=== PATIENT | male | born 1935 | race Caucasian/White ===

== ENCOUNTER 2016-09-05 11:25 | Inpatient (IN) ==
[2016-09-05] MEDS ORDERED: NITROSTAT SL PRN (11:43)
[2016-09-05] MEDS ORDERED: MORPHINE 4 MG/ML SYRINGE IVP PRN (11:43)
[2016-09-05] MEDS ORDERED: ATROPINE SULFATE PFS IVP PRN (11:43)
[2016-09-05] MEDS ORDERED: TYLENOL PO PRN (11:43)
[2016-09-05] MEDS ORDERED: VISTARIL INJ IM PRN (11:43)
[2016-09-05] MEDS ORDERED: LANOXIN IVP STA (11:46)
[2016-09-05] MEDS ORDERED: LASIX IVP STA (11:48)
[2016-09-05 12:00] VITALS: BMI 27.5
[2016-09-05 12:08] LABS: ABG BASE EXCESS -3 (-2.0-2.0); ABG HCO3 21.9 (22.0-26.0); ABG PCO2 33.4 mmHg (35-45); ABG PH 7.424 (7.35-7.45); ABG TCO2 23 (22.0-28.0)
[2016-09-05 12:12] LABS: BASOPHILS % (AUTO) 0.3 % (0.0-3.0); EOSINOPHILS # (AUTO) 0.1 K/ul (0.0-0.7); EOSINOPHILS % (AUTO) 2.1 % (0.0-7.0); HEMOGLOBIN 14.9 g/dl (14.0-18.0); IMMATURE GRANULOCYTE % (AUTO) 1.1 % (0.0-5.0); LYMPHOCYTES # (AUTO) 1.4 K/uL (0.60-3.4); LYMPHOCYTES % (AUTO) 23.1 (10.0-50.0); MEAN CORPUSCULAR HGB CONC 34.7 (31.8-35.4); MEAN CORPUSCULAR VOLUME 92.3 fl (80.0-94.0); MONOCYTES % (AUTO) 15.3 (0-10); NEUTROPHILS # (AUTO) 3.6 K/ul (2.0-6.9); NEUTROPHILS % (AUTO) 58.1; PLATELET COUNT 245 10^3/uL (140-440); RED BLOOD COUNT 4.66 10^6/ul (4.70-6.10); WHITE BLOOD COUNT 6.19 K/ul (4.2-10.2)
[2016-09-05] MEDS: ELIQUIS PO SCH ×2 (12:32→20:03)
[2016-09-05 12:48] LABS: ALBUMIN 4.1 g/dL (3.4-5.0); ALBUMIN/GLOBULIN RATIO 1.64; ANION GAP 14.3; BILIRUBIN,TOTAL 1.34 mg/dL (0.00-1.20); BUN/CREATININE RATIO 13.44; CALCIUM 9.3 mg/dL (8.2-10.2); CREATININE 1.19 mg/dL (0.60-1.10); POTASSIUM 3.3 mmol/L (3.5-5.1); TOTAL PROTEIN 6.6 g/dL (5.8-8.1); TROPONIN I 0.027 ng/ml (0.0000-0.4000)
--- NOTE | 2016-09-05 14:08 | DI ---
EXAM: Chest one view. CLINICAL INDICATION: Leg edema. COMPARISON: 01/06/2015. FINDINGS: A single AP radiograph of the thorax is provided. There are chronic underlying pulmonary parenchymal changes. The remainder of the pulmonary parenchy ma is clear and there is no pleural abnormality. The cardiomediastinal silhouette and visualized [place] structures are unchanged. IMPRESSION: No interval change, with no acute pulmonary abnormality.
[2016-09-05] MEDS ORDERED: LANOXIN IVP ONE (14:46)
[2016-09-05 15:11] LABS: BILIRUBIN,URINE Negative (NEGATIVE); KETONES,URINE Negative (NEGATIVE); LEUKOCYTE ESTERASE ,URINE Negative (NEGATIVE); NITRITE,URINE Negative (NEGATIVE); PROTEIN,URINE Negative (NEGATIVE); URINE, BLOOD Negative (NEGATIVE)
[2016-09-05 15:16] LABS: ADD URINE MICROSCOPIC NO
[2016-09-05] MEDS: FERROUS SULFATE PO SCH (20:03)
[2016-09-05 20:53] LABS: TROPONIN I 0.031 ng/ml (0.0000-0.4000)
[2016-09-05] MEDS ORDERED: [UNRECOGNIZED DRUG - MIXTURE] PO SCH (21:00)
[2016-09-06] MEDS: PROTONIX PO SCH (05:32)
[2016-09-06 06:22] LABS: BASOPHILS % (AUTO) 0.4 % (0.0-3.0); EOSINOPHILS # (AUTO) 0.1 K/ul (0.0-0.7); EOSINOPHILS % (AUTO) 1.9 % (0.0-7.0); HEMATOCRIT 43.7 % (42.0-52.0); HEMOGLOBIN 14.8 g/dl (14.0-18.0); IMMATURE GRANULOCYTE % (AUTO) 0.5 % (0.0-5.0); LYMPHOCYTES # (AUTO) 1.6 K/uL (0.60-3.4); LYMPHOCYTES % (AUTO) 21.4 (10.0-50.0); MEAN CORPUSCULAR HEMOGLOBIN 31.2 pg (27.0-31.0); MEAN CORPUSCULAR HGB CONC 33.9 (31.8-35.4); MONOCYTES # (AUTO) 1.7 K/uL (0.4-2.0); MONOCYTES % (AUTO) 23.6 (0-10); NEUTROPHILS # (AUTO) 3.8 K/ul (2.0-6.9); NEUTROPHILS % (AUTO) 52.2; PLATELET COUNT 234 10^3/uL (140-440); RED BLOOD COUNT 4.75 10^6/ul (4.70-6.10)
[2016-09-06] MEDS ORDERED: PRILOSEC PO SCH (06:30)
[2016-09-06] MEDS ORDERED: LASIX IVP SCH (06:30)
[2016-09-06 06:59] LABS: ALBUMIN 3.8 g/dL (3.4-5.0); ALBUMIN/GLOBULIN RATIO 1.52; ANION GAP 12.3; BILIRUBIN,TOTAL 1.43 mg/dL (0.00-1.20); BUN/CREATININE RATIO 11.2; CALCIUM 9.4 mg/dL (8.2-10.2); CREATININE 1.16 mg/dL (0.60-1.10); POTASSIUM 3.3 mmol/L (3.5-5.1); TOTAL PROTEIN 6.3 g/dL (5.8-8.1)
[2016-09-06] MEDS ORDERED: ASPIRIN EC PO SCH (08:00)
[2016-09-06] MEDS: ASPIRIN EC PO SCH (08:50)
[2016-09-06] MEDS ORDERED: LANOXIN IVP STA ×2 (08:56→21:14)
[2016-09-06] MEDS ORDERED: NON-FORMULARY MEDICATION (Ferrous Sulfate [Iron] 325 MG) PO SCH ×22 (09:00)
[2016-09-06] MEDS: ELIQUIS PO SCH ×2 (09:36→21:25)
[2016-09-06] MEDS: K-DUR PO SCH (09:36)
[2016-09-06] MEDS: COZAAR PO SCH (09:37)
[2016-09-06] MEDS: BETAPACE PO SCH ×4 (09:37→21:24)
[2016-09-06] MEDS: FERROUS SULFATE PO SCH ×2 (09:37→21:26)
--- NOTE | 2016-09-06 12:57 | PCM.PROG ---
Attending Provider: ATTENDING PROVIDER: Dr. JENNIFER ADORNO DATE OF SERVICE: 09/06/16 SUBJECTIVE: This 81 year old WHITE/ M was hospitalized 09/05/16. The patient is hospitalized with leg edema and atrial fibrillation with rapid ventricular response. The patient's edema is much less. Breathing is better. Echo today showed normal LV contractility. LA size 4.1 cm. Mitral valve prolapse noted with moderate mitral regurgitation. Heart rate is still 120 times per minute, average. No symptoms of CHF or CAD. REVIEW OF SYSTEMS: CONSTITUTIONAL: No night sweats. No fatigue, malaise, lethargy. No fever or chills. HEENT: Eyes: No visual changes. No eye pain. No eye discharge. ENT: No runny nose. No epistaxis. No sinus pain. No odynophagia. No congestion. RESPIRATORY: No cough, no congestion. No hemoptysis. CARDIOVASCULAR: No angina symptoms. No CHF symptoms. No atypical chest pain for CAD. No palpitations. No shortness of breath. GASTROINTESTINAL: No abdominal pain. No nausea or vomiting. No diarrhea or constipation. No hematemesis. No hematochezia. GENITOURINARY: No urgency. No frequency. No dysuria. No hematuria. No obstructive symptoms. No discharge. No pain. No significant abnormal bleeding. MUSCULOSKELETAL: Generalized osteoarthritic pain. NEUROLOGICAL: Awake, alert, oriented to time, place and person. No headache. No neck pain. No syncope. No seizures. No dizziness. PSYCHIATRIC: Not anxious. No depression. No suicidal thoughts. No homicidal thoughts. SKIN: No rash. No lesions. No wounds. ENDOCRINE: No unexplained weight loss. No weight gain. HEMATOLOGIC/LYMPHATIC: No anemia. No purpura. No petechiae. No prolonged or excessive bleeding. No palpable lymph nodes. PHYSICAL EXAMINATION: GENERAL: The patient is awake, alert and oriented, sitting in bed in no distress. VITAL SIGNS: Temperature 97.5 F, Pulse 121, Respiratory Rate 16, BP 125/84, Pulse Ox 92% HEENT: Head normocephalic, atraumatic. Eyes: Extraocular muscles are intact. Pupils are equal, round and reactive to light and accommodation. Ears: No lesions. Nose appeared normal. Throat: No exudate or erythema. NECK: Supple. No JVD, no carotid bruit. No lymphadenopathy or thyromegaly. LUNGS: Decreased breath sounds. Clear to auscultation. Percussion note normal. Chest symmetrical. HEART: S1, S2. no S3. Irregularly irregular rate. No cyanosis or clubbing. No ascites. Pulses: Dorsalis pedis and posterior tibial pulses +1 to +2 both sides. ABDOMEN: Soft. Non-tender. Bowel sounds active. No CVA tenderness. No mass felt. EXTREMITIES: +1 pitting edema. Full range of motion of all extremities, equal. NEUROLOGIC: No focal deficit. Cranial nerves II through XII are grossly intact. No headache, no double vision or headache. SKIN: Not dry. Intact. Turgor-normal. LYMPHATIC: No palpable lymph nodes/no lymphedema. MUSCULOSKELETAL: Normal joints with no swelling. Muscle tone is normal. LAB REVIEW: 09/06/16 05:30 09/06/16 05:30 09/06/16 05:30: WBC 7.30, RBC 4.75, Hgb 14.8, Hct 43.7, MCV 92.0, MCH 31.2 H, MCHC 33.9, RDW Coeff of Panfilo 14.6, Plt Count 234, Immature Gran % (Auto) 0.5, Neut % (Auto) 52.2, Lymph % (Auto) 21.4, [place] % (Auto) 23.6 H, Eos % (Auto) 1.9 , Baso % (Auto) 0.4, Immature Gran # (Auto) 0.0, Neut # 3.8, Lymph # 1.6, [place] # 1.7, Eos # 0.1, Baso # 0.0, Sodium 144, Potassium 3.3 L, Chloride 104, Carbon Dioxide 31, Anion Gap 12.3, BUN 13, Creatinine 1.16 H, Estimated GFR (MDRD) 60.00, BUN/Creatinine Ratio 11.20, Glucose 79 L, Calcium 9.4, Total Bilirubin 1.43 H, AST 51 H, ALT 77, Alkaline Phosphatase 84, Total Protein 6.3, Albumin 3.8, Globulin 2.5, Albumin/Globulin Ratio 1.52 09/05/16 20:15: Total Creatine Kinase 68, Myoglobin 94, Troponin I 0.0310 09/05/16 12:00: WBC 6.19, RBC 4.66 L, Hgb 14.9, Hct 43.0, MCV 92.3, MCH 32.0 H, MCHC 34.7, RDW Coeff of Panfilo 14.9 H, Plt Count 245, Immature Gran % (Auto) 1.1, Neut % (Auto) 58.1, Lymph % (Auto) 23.1, [place] % (Auto) 15.3 H, Eos % (Auto) 2.1 , Baso % (Auto) 0.3, Immature Gran # (Auto) 0.1, Neut # 3.6, Lymph # 1.4, [place] # 1.0, Eos # 0.1, Baso # 0.0, Sodium 143, Potassium 3.3 L, Chloride 106, Carbon Dioxide 26, Anion Gap 14.3, BUN 16, Creatinine 1.19 H, Estimated GFR (MDRD) 59.00, BUN/Creatinine Ratio 13.44, Glucose 119 H, Calcium 9.3, Total Bilirubin 1.34 H, AST 68 H, ALT 97 H, Alkaline Phosphatase 90, Total Creatine Kinase 66, Myoglobin 66, Troponin I 0.0270, B-Natriuretic Peptide 632 H, Total Protein 6.6 , Albumin 4.1, Globulin 2.5, Albumin/Globulin Ratio 1.64, TSH 2.267, Free T4 1.23 H 09/05/16 11:45: Puncture Site Rr, O2 Saturation 94.0 L, ABG pH 7.424, ABG pCO2 33.4 L, ABG pO2 70.0 L, ABG HCO3 21.9 L, ABG Total CO2 23, ABG Base Excess -3 L , Bertin Test +, FiO2 % 21.0 09/05/16 11:43: Urine Color Yellow, Urine Clarity Clear, Urine pH 5.0, Ur Specific [place] 1.015, Urine Protein Negative, Urine Glucose (UA) Negative, Urine Ketones Negative, Urine Blood Negative, Urine Nitrite Negative, Urine Bilirubin Negative, Urine Urobilinogen 0.2, Ur Leukocyte Esterase Negative ASSESSMENT: 1. Atrial fibrillation with rapid ventricular response, early CHF, mitral regurgitation moderate with mitral valve prolapse/leg edema. 2. History of hypertension. PLAN: 1. Lanoxin 0.25 IV now and Betapace 40 mg t.i.d. 2. Discontinue Hydrochlorothiazide. 3. Lasix 40 mg p.o. daily. 4. Discontinue IV Lasix. 5. Discontinue Zestril. 6. Cozaar 50 mg daily. 7. Lanoxin level in the a.m. 8. K-Tab 20 mEq 9. Regular diet. Plan and coordination of the patient's care discussed in the presence of Application Counselor and nurse. CONDITION: Stable EDUCATION CARRIED OUT ABOUT: Discussed diagnoses and plan of care with the and patient. SCRIBED BY: SAM MORA Bumper Machine Operator scribed while in presence of service performed by Dr. JENNIFER ADORNO on 09/06/16 ([id number])
--- NOTE | 2016-09-06 14:35 | HP ---
DATE OF SERVICE: 09/05/16 REASON FOR HOSPITALIZATION/HISTORY OF PRESENT ILLNESS: Feet and legs swelling. Shortness of breath with exertion times 4 weeks. Was refusing to come to [facility]. Some palpitations x4 weeks. No chest pain. No symptoms of coronary artery disease and no energy. REVIEW OF SYSTEMS: CONSTITUTIONAL: No fever, Fatigue. HEENT: No sinus drainage, no sore throat. RESPIRATORY: No cough, no congestion. CARDIOVASCULAR: No atypical chest pain for coronary artery disease. No angina , CHF symptoms. Palpitations and shortness of breath. GASTROINTESTINAL: No melena or abdominal pain. No GERD. GENITOURINARY: No hematuria, no prostatism, no polyuria. ASSEMBLER FAUCETS: No blackout, Dizziness, no headache, no double vision. MUSCULOSKELETAL: Osteoarthritis pain, no joint swelling. ENDOCRINE: No weight loss. Weight gain- 10 pounds in 3 months. SKIN: Not dry, no rash. PSYCHIATRIC: Anxious, no depression, no suicidal thoughts, no homicidal thoughts. SOCIAL HISTORY: Marital Status: with 7 children. Alcohol Usage: No. Tobacco Usage: Quit. Family history: Father , Mother -cancer. PAST MEDICAL AND SURGICAL HISTORY: Vasectomy 1970 Hernia 1966 Hypertension Heart burn MEDICATIONS: Aspirin 81mg Lisinopril 10-12.5mg PO Q 72 hours Ferrous Sulfate 325mg PO daily Protonix 40mg PO daily Cold and Flu fighter cap PO bedtime ALLERGIES: No known drug allergies PHYSICAL EXAMINATION: V/S: pulse 116, blood pressure 124/82 and pulse ox 99% GENERAL APPEARANCE: Oriented times three. HEENT: Normal. NECK: No JVP, no bruits. RESPIRATORY: Lungs are clear with few creps. CARDIOVASCULAR: S1, S2, no S3, irregular rate 130/min. No cyanosis, clubbing. No ascites. GI/ABDOMEN: No tenderness. Bowel sounds are active. EXTREMITIES: +2 pitting edema, pulses +1, equal. ASSEMBLER FAUCETS: Deep tendon reflexes, sensory, motor and gait all normal. RECTAL: Dr. Quintero 8-16/PROSTATE: 2-15(2.9). LABS: BNP 632, T4 TSH practically normal, hgb 14.9, hct 43, WBC 6,100 normal differential, potassium 3.3, creatinine 1.1, BUN 16, Bilirubin 1.3, AST and ALT elevated 68 and 97 normal being up to 37 and 78 respectively. ABG pO2 70, pCO2 33, pH 7.42 with 94% saturation. Chest x-ray normal. EGF atrial fibrillation with rapid ventricular response rate 130 per minute. ASSESSMENT: 1. Atrial fibrillation 2. Congestive heart failure 3. Leg edema 4. Hypertension 5. GERD 6. COPD 7. Large hiatal hernia 8. Insomnia 9. Right adrenal nodule. PLAN: 1. Admit 2. Routine telemetry orders 3. T4 and TSH 4. Daily CBC and CMP 5. BNP 6. Echo 2D M Mode 7. Lanoxin 0.25mg IV now and another dose 3 hours later 8. Elevate legs 9. Lasix 40mg IV Q AM and today 10. Daily weight 11. Educate about Atrial fibrillation 12. Eliquis 5mg PO twice a day daily 13. ABG 14. Continue all home medications. TIME SPENT: More than 70 minutes. MTDD
[2016-09-06] MEDS ORDERED: BETAPACE PO STA (21:19)
[2016-09-07] MEDS: LASIX TAB PO SCH (05:57)
[2016-09-07] MEDS: PROTONIX PO SCH (05:58)
[2016-09-07 07:30] LABS: BASOPHILS % (AUTO) 0.5 % (0.0-3.0); EOSINOPHILS # (AUTO) 0.2 K/ul (0.0-0.7); EOSINOPHILS % (AUTO) 2.8 % (0.0-7.0); HEMATOCRIT 44.4 % (42.0-52.0); HEMOGLOBIN 15.1 g/dl (14.0-18.0); IMMATURE GRANULOCYTE % (AUTO) 1.1 % (0.0-5.0); LYMPHOCYTES # (AUTO) 1.5 K/uL (0.60-3.4); LYMPHOCYTES % (AUTO) 22.7 (10.0-50.0); MEAN CORPUSCULAR HEMOGLOBIN 31.2 pg (27.0-31.0); MEAN CORPUSCULAR VOLUME 91.7 fl (80.0-94.0); MONOCYTES # (AUTO) 1.3 K/uL (0.4-2.0); NEUTROPHILS # (AUTO) 3.4 K/ul (2.0-6.9); NEUTROPHILS % (AUTO) 52.9; PLATELET COUNT 265 10^3/uL (140-440); RED BLOOD COUNT 4.84 10^6/ul (4.70-6.10); WHITE BLOOD COUNT 6.39 K/ul (4.2-10.2)
[2016-09-07 07:54] LABS: ALBUMIN 3.7 g/dL (3.4-5.0); ALBUMIN/GLOBULIN RATIO 1.54; ANION GAP 16.3; BILIRUBIN,TOTAL 1.47 mg/dL (0.00-1.20); BUN/CREATININE RATIO 16.66; CALCIUM 9.4 mg/dL (8.2-10.2); CREATININE 1.08 mg/dL (0.60-1.10); POTASSIUM 3.3 mmol/L (3.5-5.1); TOTAL PROTEIN 6.1 g/dL (5.8-8.1)
[2016-09-07] MEDS: COZAAR PO SCH (08:49)
[2016-09-07] MEDS: ELIQUIS PO SCH ×2 (08:49→20:20)
[2016-09-07] MEDS: BETAPACE PO SCH ×2 (08:49→20:18)
[2016-09-07] MEDS: K-DUR PO SCH (08:50)
[2016-09-07] MEDS: FERROUS SULFATE PO SCH ×2 (08:50→20:20)
[2016-09-07] MEDS: ASPIRIN EC PO SCH (08:50)
[2016-09-07] MEDS ORDERED: LANOXIN IVP STA (13:38)
[2016-09-07] MEDS ORDERED: BETAPACE PO STA (13:38)
[2016-09-07] MEDS ORDERED: LANOXIN ONE (14:10)
[2016-09-07 22:37] VITALS: TEMP 97.6
[2016-09-08 05:20] VITALS: BP 116/81
[2016-09-08] MEDS: LASIX TAB PO SCH (05:32)
[2016-09-08] MEDS: PROTONIX PO SCH (05:32)
[2016-09-08 05:37] LABS: BASOPHILS % (AUTO) 0.5 % (0.0-3.0); EOSINOPHILS # (AUTO) 0.2 K/ul (0.0-0.7); EOSINOPHILS % (AUTO) 2.3 % (0.0-7.0); HEMATOCRIT 43.7 % (42.0-52.0); HEMOGLOBIN 14.9 g/dl (14.0-18.0); IMMATURE GRANULOCYTE % (AUTO) 0.8 % (0.0-5.0); LYMPHOCYTES # (AUTO) 1.7 K/uL (0.60-3.4); LYMPHOCYTES % (AUTO) 26.3 (10.0-50.0); MEAN CORPUSCULAR HGB CONC 34.1 (31.8-35.4); MONOCYTES # (AUTO) 1.4 K/uL (0.4-2.0); MONOCYTES % (AUTO) 21.4 (0-10); NEUTROPHILS # (AUTO) 3.1 K/ul (2.0-6.9); NEUTROPHILS % (AUTO) 48.7; PLATELET COUNT 230 10^3/uL (140-440); WHITE BLOOD COUNT 6.39 K/ul (4.2-10.2)
[2016-09-08 06:05] LABS: ALBUMIN 3.5 g/dL (3.4-5.0); ALBUMIN/GLOBULIN RATIO 1.52; ANION GAP 14.9; BILIRUBIN,TOTAL 1.27 mg/dL (0.00-1.20); BUN/CREATININE RATIO 23.23; CALCIUM 9.2 mg/dL (8.2-10.2); CREATININE 0.99 mg/dL (0.60-1.10); POTASSIUM 3.9 mmol/L (3.5-5.1); TOTAL PROTEIN 5.8 g/dL (5.8-8.1)
[2016-09-08] MEDS: ASPIRIN EC PO SCH (08:10)
[2016-09-08] MEDS: COZAAR PO SCH (08:10)
[2016-09-08] MEDS: FERROUS SULFATE PO SCH (08:10)
[2016-09-08] MEDS: K-DUR PO SCH (08:10)
[2016-09-08] MEDS: ELIQUIS PO SCH (08:10)
[2016-09-08] MEDS: BETAPACE PO SCH (08:37)
[2016-09-08] MEDS ORDERED: HYDROCHLOROTHIAZIDE PO SCH (09:00)
[2016-09-08] MEDS ORDERED: ZESTRIL PO SCH (09:00)
[2016-09-08] MEDS ORDERED: COZAAR PO SCH (09:45)
[2016-09-09] MEDS ORDERED: LASIX TAB PO SCH (06:30)
[2016-09-09] MEDS ORDERED: MICRO-K CAP PO SCH (09:00)
[2016-09-09] MEDS ORDERED: LANOXIN PO SCH ×2 (09:00)
--- NOTE | 2016-09-09 09:25 | ECHO2D ---
Date of Exam: 09/06/16 Ordering Physician: JENNIFER ADORNO Reason for Echo: A-FIB, LEG EDEMA, LVH Auscultation: S1, S2 M-Mode Normal Adult Results LV Dimensions Normal Adult Results AoV Opening excursions >1.6 >1.6 LVEDD-base- 3.5-5.8 5.5 Ao root dimensions 2.0-3.7 3.4 LVESD-base- 3.1-4.6 L. Atrium dimensions 1.9-3.8 4.2 Post. Wall thickness 0.8-1.1 1.1 IV septum (thickness) 0.7-1.2 0.1 Post. Wall excursion 0.72-1.3 NORMAL Septal motion NORMAL Systolic motion R. Ventricular cavity 1.5-2.0 NORMAL LVEF 60% 53% Paradoxical septal wall motion NORMAL 2-D : ENLARGED RIGHT VENTRICLE AND LEFT ATRIAL CAVITIES--LEFT VENTRICULAR CONTRACTILITY--NORMAL, NO EFFUSION, NO THROMBUS, NORMAL VALVES, MVP NOTED LEFT PARASTERNAL LONG AXIS AND APICAL FOUR CHAMBER VIEW DOPPLER WITH COLOR FLOW: MODERATE MITRAL REGURGITATION MODE: MV: MVP AV: NORMAL TV: NORMAL PV: NORMAL CHAMBER SIZE: ENLARGED RIGHT VENTRICLE AND LEFT ATRIAL CAVITIES WALL MOTION: NORMAL PERICARDIUM: NORMAL INTERPRETATION: 1. BORDERLINE LEFT VENTRICULAR HYPERTROPHY 2. ENLARGED LEFT ATRIAL AND RIGHT VENTRICLE CAVITIES 3. LEFT VENTRICLE CAVITY 5.5 CM 4. LEFT VENTRICULAR EJECTION FRACTION 53% 5. MVP NOTED WITH MODERATE MITRAL REGURGITATION MTDD
--- NOTE | 2016-09-11 14:09 | PN ---
DATE OF SERVICE: 09/08/16 DISCHARGE NOTE SUBJECTIVE: The patient is an 81 year old white male hospitalized with atrial fibrillation, rapid ventricular response. The patient had CHADS score of 3. He was put on Eliquis. Side effects GI and intracranial bleed discussed with him. Usually also present by his side. The patient's rate was brought down with Betapace of 120mg twice a day along with Lanoxin 0.25mg. Zestril was discontinued, Lasix and potassium and Cozaar was added along with Betapace and Lanoxin. All the side of the side effects of all medications discussed. Atrial fibrillation and complications and treatment with complications. The patient declined to take Coumadin. Norval blood thinners were discussed. The patient's leg edema subsided. REVIEW OF SYSTEMS: CONSTITUTIONAL: No night sweats. No fatigue, malaise, lethargy. No fever or chills. HEENT: Eyes: No visual changes. No eye pain. No eye discharge. ENT: No runny nose. No epistaxis. No sinus pain. No sore throat. No odynophagia. No congestion. RESPIRATORY: No cough, no congestion. No hemoptysis. CARDIOVASCULAR: No angina symptoms. No CHF symptoms. No atypical chest pain for CAD. No palpitations. No shortness of breath. GASTROINTESTINAL: No abdominal pain. No nausea or vomiting. No diarrhea or constipation. No hematemesis. No hematochezia. GENITOURINARY: No urgency. No frequency. No dysuria. No hematuria. No obstructive symptoms. No discharge. No pain. No significant abnormal bleeding. MUSCULOSKELETAL: No musculoskeletal pain; no joint swelling. NEUROLOGICAL: No headache. No neck pain. No syncope. No seizures. No dizziness. PSYCHIATRIC: Not anxious. No depression. No suicidal thoughts. No homicidal thoughts. SKIN: No rash. No lesions. No wounds. ENDOCRINE: No unexplained weight loss. No weight gain. HEMATOLOGIC/LYMPHATIC: No anemia. No purpura. No petechiae. No prolonged or excessive bleeding. No palpable lymph nodes. PHYSICAL EXAMINATION: GENERAL: The patient is oriented to time, place and person. VITAL SIGNS: Temperature 97.6, pulse 92, respiratory rate 22, blood pressure 116/81 and pulse ox 94%. HEENT: Head normocephalic, atraumatic. Eyes: Extraocular muscles are intact. Pupils are equal, round and reactive to light and accommodation. Ears: No lesions. Nose appeared normal. Throat: No exudate or erythema. NECK: Supple. No JVD, no carotid bruit. No lymphadenopathy or thyromegaly. LUNGS: Decreased breath sounds but clear to auscultation. Percussion note normal. Chest symmetrical. HEART: S1, S2, no S3. No murmurs. No cyanosis or clubbing. No ascites. Pulses: Dorsalis pedis and posterior tibial pulses +1 to +2 both sides. ABDOMEN: Soft. Nontender. Bowel sounds active. No CVA tenderness. No mass felt. EXTREMITIES: No edema. Full range of motion of all extremities, equal. NEUROLOGIC: No focal deficit. Cranial nerves II through XII are grossly intact. No headache, no double vision or headache. SKIN: Not dry. Intact. Turgor - normal. LYMPHATIC: No palpable lymph nodes/no lymphedema. MUSCULOSKELETAL: Normal joints with no swelling. Muscle tone is normal. ASSESSMENT: 1. Atrial fibrillation with normal ventricular response 2. Hypertension,controlled 3. Congestive heart failure, resolved CONDITION: Stable The patient is going to be seen on Friday at 1:30pm. The was present when all the medications were discussed with the patient. TIME SPENT: More than 30 minutes. Plan and coordination of the patient's care discussed in the presence of nurse. LETICIA
--- NOTE | 2016-09-11 14:52 | DS ---
DATE OF SERVICE: 09/08/16 FINAL DIAGNOSIS: 1. Atrial fibrillation with rapid ventricular response 2. LVF 3. Hypertension DISCHARGE INSTRUCTIONS: Discharge home. Continue home medication as listed on discharge instructions. Appointment with Dr. Santillan will be Saturday, September 10, 2016 at 1:30pm in his office. Do not take Zestoretic 10-12.5mg anymore. MEDICATIONS AT DISCHARGE: Lisinopril/ Hydrochlorothiazide 10-12.5mg one each PO Q 72 hours Iron 325mg PO daily Aspirin 81mg PO daily Protonix 40mg PO daily Cold and Flu fighter cap one each PO bedtime Lanoxin 250mcg PO daily Lasix 20mg PO daily Cozaar 50mg PO daily Potassium Chloride 10 meq Po daily Betapace 120mg PO twice a day. NEW PRESCRIPTIONS: Lanoxin 0.25mg PO daily Betapace 120mg twice a day Lasix 20mg PO daily K-tab 10 meq PO daily Cozaar 50mg PO daily DIET INSTRUCTIONS: As tolerated ACTIVITY: Gradually resume activity as tolerated SMOKING: Former smoker DISEASE SPECIFIC EDUCATION: New medications Atrial fibrillation Appointment Change in medications. LABS: Hgb 14.9, hct 43, WBC 6,300 normal differential, creatinine 0.9, BUN 23, potassium 3.9, glucose 85, BNP 632 on 09/05/16, T4 TSH normal and EGFR 72 cc per minute. HOSPITAL COURSE: The patient is an 81 year old white male as described in discharge note was hospitalized with LVF, shortness of breath and fatigue. The patient was seen in the office with atrial fibrillation with rapid ventricular response. This was the first time he was noted to have it by history it seems to be that the patient had this for nearly four weeks. IV Lasix took care of his edema quickly within a day and a half. He felt a lot better, his appetite improved and he was up and about. He was started on Betapace, Lasix and unloading agents. His condition improved. CONDITION: Stable. TIME SPENT: More than 60 minutes. [facility] HOSPITALAndrzej
--- NOTE | 2016-09-11 14:55 | PN ---
09/05/16: Level 5 09/06/16: Intermediate 09/07/16: Intermediate 09/08/16: D as in discharge MTDD
--- NOTE | 2016-09-12 14:47 | PN ---
DATE OF SERVICE: 09/07/16 SUBJECTIVE: The patient is an 81 year old white male hospitalized with atrial fibrillation with rapid ventricular response and some symptoms of LVF with +2 bilateral pitting edema. The patient had some shortness of breath and weakness, symptoms are there are four weeks. The patient is being treated with IV Lanoxin and Betapace. His heart rate is still averaging 110 per minute. Echo showed borderline LVH, enlarged LA cavity, enlarged RV cavity and LV ejection fraction was 53%. The patient also has mitral valve prolapse with moderate mitral regurgitation. His Lanoxin level this morning was 0.3. He has been given so far 0.75mg of IV Lanoxin. REVIEW OF SYSTEMS: CONSTITUTIONAL: No night sweats. No fatigue, malaise, lethargy. No fever or chills. HEENT: Eyes: No visual changes. No eye pain. No eye discharge. ENT: No runny nose. No epistaxis. No sinus pain. No sore throat. No odynophagia. No congestion. RESPIRATORY: No cough, no congestion. No hemoptysis. CARDIOVASCULAR: No angina symptoms. No CHF symptoms. No atypical chest pain for CAD. No palpitations. No shortness of breath. GASTROINTESTINAL: No abdominal pain. No nausea or vomiting. No diarrhea or constipation. No hematemesis. No hematochezia. GENITOURINARY: No urgency. No frequency. No dysuria. No hematuria. No obstructive symptoms. No discharge. No pain. No significant abnormal bleeding. MUSCULOSKELETAL: No musculoskeletal pain; no joint swelling. NEUROLOGICAL: No headache. No neck pain. No syncope. No seizures. No dizziness. PSYCHIATRIC: Not anxious. No depression. No suicidal thoughts. No homicidal thoughts. SKIN: No rash. No lesions. No wounds. ENDOCRINE: No unexplained weight loss. No weight gain. HEMATOLOGIC/LYMPHATIC: No anemia. No purpura. No petechiae. No prolonged or excessive bleeding. No palpable lymph nodes. PHYSICAL EXAMINATION: GENERAL: The patient is oriented to time, place and person. The patient and granddaughter in the room. The patient is kind of a joker but intelligent man. is very understanding. VITAL SIGNS: Temperature 97.8, pulse 118, respiratory rate 18, blood pressure 117/84 and pulse ox 93%. HEENT: Head normocephalic, atraumatic. Eyes: Extraocular muscles are intact. Pupils are equal, round and reactive to light and accommodation. Ears: No lesions. Nose appeared normal. Throat: No exudate or erythema. NECK: Supple. No JVD, no carotid bruit. No lymphadenopathy or thyromegaly. LUNGS: Decreased breath sounds pretty clear to auscultation. Percussion note normal. Chest symmetrical. HEART: S1, S2 Irregularly irregular rate 110 per minute, apical, no S3. No murmurs. No cyanosis or clubbing. No ascites. Pulses: Dorsalis pedis and posterior tibial pulses +1 to +2 both sides. Atrial fibrillation with complications discussed. CHADS score is 3. He is already on Eliquis. Eliquis discussed in detail with it's side effect like intracranial bleed, GI bleed. ABDOMEN: Soft. Nontender. Bowel sounds active. No CVA tenderness. No mass felt. EXTREMITIES: No edema. Full range of motion of all extremities, equal. NEUROLOGIC: No focal deficit. Cranial nerves II through XII are grossly intact. No headache, no double vision or headache. SKIN: Not dry. Intact. Turgor - normal. LYMPHATIC: No palpable lymph nodes/no lymphedema. MUSCULOSKELETAL: Normal joints with no swelling. Muscle tone is normal. LABS: Hgb 14.8, hct 43, WBC 7,300 normal differential, creatinine 1.1, BUN 13 and potassium 3.3 ASSESSMENT: 1. Atrial Fibrillation 2. LVF, resolved 3. Mitral valve prolapse with moderate mitral regurg 4. History of hypertension PLAN: 1. BNP tomorrow 2. Lanoxin 2.5mg IV now 3. Betapace to be increased to 120 twice a day 4. The patient is advised to walk CONDITION: Stable. TIME SPENT: More than 30 minutes. Plan and coordination of the patient's care discussed in the presence of nurse. LETICIA
== END 2016-09-08 11:10 | disposition home or self-care (01) | DRG 310 ==
LOC: MEDSURG A 11:25
PROVIDERS: ADMIT Internal Medicine; ATTEND Internal Medicine
DX: I48.91 Unspecified atrial fibrillation (principal); I51.7 Cardiomegaly; I10 Essential (primary) hypertension; I50.9 Heart failure, unspecified; R60.0 Localized edema; I34.1 Nonrheumatic mitral (valve) prolapse; I34.0 Nonrheumatic mitral (valve) insufficiency; R06.02 Shortness of breath; R53.83 Other fatigue; Z79.899 Other long term (current) drug therapy
CPT/HCPCS: 36415; 80053; 80162; 81001; 82550; 82803; 83874; 83880; 84439; 84443; 84484; 85025; 93005; 93010

== ENCOUNTER 2016-09-30 21:39 | Inpatient (IN) ==
[2016-09-30] MEDS ORDERED: SODIUM CHLORIDE 1,000 ML IV STA (21:40)
--- NOTE | 2016-09-30 21:48 | ED.PDOC ---
General ED Provider: Dr. HALIMA BRAMBILA Chief Complaint: Chest Pain Stated Complaint: Patient is an 81 year old male who comes to the ER with c/o chest pressure since noon. Dry, cool skin. More short of air today than normal. Time Seen by Physician: 21:40 Information Source: Patient, Family Primary Care Provider: JENNIFER CONTRERAS Nursing and Triage Documentation Reviewed and Agree: Yes Cardiovascular Complaint Exam - Chest Pain Complaint/Exam Onset: Gradual Duration: 1 days Symptoms Are: Still present Timing: Constant Initial Severity: Mild Current Severity: Moderate Location: Reports: Midsternal Pain Radiates: Reports: None Character: Reports: Heaviness Aggravating: Reports: Exertion, Movement (Laying flat ) Alleviating: Reports: Upright position Associated Signs and Symptoms: Reports: Short of air. Denies: Diaphoresis, Nausea, Vomiting, Fever, Palpitations, Cough, Hemoptysis, Back pain, Abdominal pain, Dizziness, Calf pain, Calf swelling Related History: Reports: Similar episode Related Surgical History: Reports: None History of Healthcare-Acquired Pneumonia: Reports: No AMI/ACS Risk Factors: Reports: Hypertension, CHF. Denies: Diabetes, Obesity, Family history, Cocaine use TAD Risk Factors: Reports: Hypertension Pulmonary Embolism Risk Factors: Denies: OCs/Estrogen, , Malignancy, Recent travel, Bedrest, Recent surgery, Recent trauma, Previous PE Prior Care for this Complaint: No Recent Stress Test: No Recent Echo/LV Function: Yes (09/06/2016) JVD Present: Yes Subcutaneous Emphysema Present: No Diminshed Breath Sounds: Yes Reproducible Chest Wall Pain: No Bilateral Pulses Present: Yes Unequal Pulses Noted: No If Risk Factors for AMI/ACS Consider: EKG, Cardiac Enzymes, Oxygen Differential Diagnoses: CHF, Pulmonary Edema Quality Indicators For Acute UT or Cardiac Chest Pain: EKG in 10min. Quality Indicators For Pneumonia/CAP: Blood Cultures-SCU admit Review of Systems - Review Of Systems Constitutional: Reports: Other (Anxious ) Ears, Nose, Mouth, Throat: Reports: No symptoms Respiratory: Reports: Orthopnea, Short of air Cardiac: Reports: Chest pain (heaviness ), Irregular heart rate GI: Reports: No symptoms : Reports: No symptoms Musculoskeletal: Reports: No symptoms Skin: Reports: No symptoms Neurological: Reports: Anxiety Endocrine: Reports: No symptoms Hematologic/Lymphatic: Reports: No symptoms All Other Systems: Reviewed and Negative Past Medical History - Past Medical History Endocrine: Reports: None Cardiovascular: Reports: Hypertension, CHF, A-Fib Respiratory: Reports: None Hematological: Reports: Anemia Gastrointestinal: Reports: GERD Genitourinary: Reports: None Neuro/Psych: Reports: None Musculoskeletal: Reports: Arthritis Cancer: Reports: None - Surgical History General Surgical History: Reports: Hernia Repair - Family History Family History: Reports: Heart - Social History Smoking Status: Former smoker Hx Substance Use: No Physical Exam - Physical Exam Appearance: Ill-appearing Respiratory: Breath sounds diminished, Crackles Cardiovascular: Irregular rhythm, Tachycardia GI/: Soft, Nontender, No masses, Bowel sounds normal, No Organomegaly Musculoskeletal: Edema (mild pitting on the ankle.) Skin: Warm, Dry, Normal color Neurological: Sensation intact, Motor intact, Reflexes intact, Cranial nerves intact, Alert, Oriented Psychiatric: Anxious Interpretation - Radiology Interpretation Radiology Interpretation By: Radiologist Radiology Results: Positive Exam Interpreted: Other (CHF) - Investigator Welfare Rate: Tachy Rhythm: Other - EKG Interpretation Time of EKG #1: 21:55 Rate: Tachy Rhythm: Other (Atrial fibrillation with RVR) Interpretation: Atrial Fibrillation with RVR Physician Notification - Case Discussed Physician Notified: Dr contreras Time of Notification: 23:00 (Discussed Chest x ray findings less likely to be pneumonia more likely CHF.) Critical Care Note - Critical Care Note Total Time (mins): 15 Course - Course Hematology/Chemistry: 09/30/16 21:57 09/30/16 21:57 Orders, Labs, Meds: Lab Review 09/30/16 09/30/16 09/30/16 21:17 21:57 22:25 WBC 17.45 H RBC 5.63 Hgb 17.8 Hct 50.9 MCV 90.4 MCH 31.6 H MCHC 35.0 RDW Coeff of Panfilo 15.2 H Plt Count 370 Immature Gran % (Auto) 2.1 Neut % (Auto) 70.1 Lymph % (Auto) 11.6 [place] % (Auto) 14.4 H Eos % (Auto) 1.5 Baso % (Auto) 0.3 Immature Gran # (Auto) 0.4 Neut # 12.2 H Lymph # 2.0 [place] # 2.5 H Eos # 0.3 Baso # 0.1 Puncture Site O2 Saturation ABG pH ABG pCO2 ABG pO2 ABG HCO3 ABG Total CO2 ABG Base Excess Bertin Test FiO2 % Sodium 140 Potassium 3.9 Chloride 101 Carbon Dioxide 24 Anion Gap 18.9 BUN 15 Creatinine 1.28 H Estimated GFR (MDRD) 54.00 BUN/Creatinine Ratio 11.71 Glucose 143 H Lactic Acid 18.8 Calcium 9.7 Total Bilirubin 1.29 H AST 30 ALT 70 Alkaline Phosphatase 93 Total Creatine Kinase 64 Troponin I 0.0110 B-Natriuretic Peptide 1035 H Total Protein 7.4 Albumin 4.5 Globulin 2.9 Albumin/Globulin Ratio 1.55 Procalcitonin < 0.05 Digoxin 0.78 L 09/30/16 22:57 WBC RBC Hgb Hct MCV MCH MCHC RDW Coeff of Panfilo Plt Count Immature Gran % (Auto) Neut % (Auto) Lymph % (Auto) [place] % (Auto) Eos % (Auto) Baso % (Auto) Immature Gran # (Auto) Neut # Lymph # [place] # Eos # Baso # Puncture Site Lb O2 Saturation 89.0 L ABG pH 7.421 ABG pCO2 33.1 L ABG pO2 54.0 L* ABG HCO3 21.6 L ABG Total CO2 23 ABG Base Excess -3 L Bertin Test + FiO2 % 21.0 Sodium Potassium Chloride Carbon Dioxide Anion Gap BUN Creatinine Estimated GFR (MDRD) BUN/Creatinine Ratio Glucose Lactic Acid Calcium Total Bilirubin AST ALT Alkaline Phosphatase Total Creatine Kinase Troponin I B-Natriuretic Peptide Total Protein Albumin Globulin Albumin/Globulin Ratio Procalcitonin Digoxin Orders Category Date Time Status ADMIT PATIENT INPATIENT .TO SCU (MONITORED BED) ADMISSION 09/30/16 23:24 Active ABG DRAW REQUEST Stat CARDIO 09/30/16 22:57 Completed EKG-(ED ONLY) Stat CARDIO 09/30/16 21:40 Completed EKG-(IP & OP ONLY) Routine CARDIO 10/01/16 06:00 Ordered NEBULIZER TREATMENT Routine CARDIO 09/30/16 23:38 Active OXYGEN Routine CARDIO 09/30/16 23:24 Active ACTIVITY .Early Mobilization for VTE Prevention CARE 09/30/16 23:29 Active INTAKE & OUTPUT Q8HR CARE 09/30/16 23:24 Active TELEMETRY MONITORING TELE CARE 09/30/16 23:25 Active VITAL SIGNS Q4HR CARE 09/30/16 23:26 Active 2 GRAM SODIUM DIET DIETARY 09/30/16 Breakfast Ordered CARDIAC DIET DIETARY 09/30/16 Breakfast Ordered ED APPLY O2 .ONCE EMERGENCY 09/30/16 21:40 Active ED IV/MEDIPORT/POWERPORT .ONCE EMERGENCY 09/30/16 21:40 Active ABG Stat LAB 09/30/16 22:57 Completed B-TYPE NATRIURETIC PEPTIDE Stat LAB 09/30/16 21:57 Completed BASIC METABOLIC PANEL DAILY@0600 LAB 10/01/16 06:00 Ordered BASIC METABOLIC PANEL DAILY@0600 LAB 10/02/16 06:00 Ordered BASIC METABOLIC PANEL DAILY@0600 LAB 10/03/16 06:00 Ordered BASIC METABOLIC PANEL DAILY@0600 LAB 10/04/16 06:00 Ordered BASIC METABOLIC PANEL DAILY@0600 LAB 10/05/16 06:00 Ordered BASIC METABOLIC PANEL DAILY@0600 LAB 10/06/16 06:00 Ordered BASIC METABOLIC PANEL DAILY@0600 LAB 10/07/16 06:00 Ordered BASIC METABOLIC PANEL DAILY@0600 LAB 10/08/16 06:00 Ordered BASIC METABOLIC PANEL DAILY@0600 LAB 10/09/16 06:00 Ordered BASIC METABOLIC PANEL DAILY@0600 LAB 10/10/16 06:00 Ordered BASIC METABOLIC PANEL DAILY@0600 LAB 10/11/16 06:00 Ordered BASIC METABOLIC PANEL DAILY@0600 LAB 10/12/16 06:00 Ordered BASIC METABOLIC PANEL DAILY@0600 LAB 10/13/16 06:00 Ordered BASIC METABOLIC PANEL DAILY@0600 LAB 10/14/16 06:00 Ordered BASIC METABOLIC PANEL DAILY@0600 LAB 10/15/16 06:00 Ordered BASIC METABOLIC PANEL DAILY@0600 LAB 10/16/16 06:00 Ordered BASIC METABOLIC PANEL DAILY@0600 LAB 10/17/16 06:00 Ordered BASIC METABOLIC PANEL DAILY@0600 LAB 10/18/16 06:00 Ordered BASIC METABOLIC PANEL DAILY@0600 LAB 10/19/16 06:00 Ordered BASIC METABOLIC PANEL DAILY@0600 LAB 10/20/16 06:00 Ordered BLOOD CULTURE Stat LAB 09/30/16 22:25 Received CBC W/ AUTO DIFF DAILY@0600 LAB 10/01/16 06:00 Ordered CBC W/ AUTO DIFF DAILY@0600 LAB 10/02/16 06:00 Ordered CBC W/ AUTO DIFF DAILY@0600 LAB 10/03/16 06:00 Ordered CBC W/ AUTO DIFF DAILY@0600 LAB 10/04/16 06:00 Ordered CBC W/ AUTO DIFF DAILY@0600 LAB 10/05/16 06:00 Ordered CBC W/ AUTO DIFF DAILY@0600 LAB 10/06/16 06:00 Ordered CBC W/ AUTO DIFF DAILY@0600 LAB 10/07/16 06:00 Ordered CBC W/ AUTO DIFF DAILY@0600 LAB 10/08/16 06:00 Ordered CBC W/ AUTO DIFF DAILY@0600 LAB 10/09/16 06:00 Ordered CBC W/ AUTO DIFF DAILY@0600 LAB 10/10/16 06:00 Ordered CBC W/ AUTO DIFF DAILY@0600 LAB 10/11/16 06:00 Ordered CBC W/ AUTO DIFF DAILY@0600 LAB 10/12/16 06:00 Ordered CBC W/ AUTO DIFF DAILY@0600 LAB 10/13/16 06:00 Ordered CBC W/ AUTO DIFF DAILY@0600 LAB 10/14/16 06:00 Ordered CBC W/ AUTO DIFF DAILY@0600 LAB 10/15/16 06:00 Ordered CBC W/ AUTO DIFF DAILY@0600 LAB 10/16/16 06:00 Ordered CBC W/ AUTO DIFF DAILY@0600 LAB 10/17/16 06:00 Ordered CBC W/ AUTO DIFF DAILY@0600 LAB 10/18/16 06:00 Ordered CBC W/ AUTO DIFF DAILY@0600 LAB 10/19/16 06:00 Ordered CBC W/ AUTO DIFF DAILY@0600 LAB 10/20/16 06:00 Ordered CBC W/ AUTO DIFF Stat LAB 09/30/16 21:57 Completed COMPREHENSIVE METABOLIC PANEL Stat LAB 09/30/16 21:57 Completed CREATINE KINASE Stat LAB 09/30/16 21:57 Completed DIGOXIN Stat LAB 09/30/16 21:57 Completed LACTIC ACID Stat LAB 09/30/16 22:25 Completed PROCALCITONIN Stat LAB 09/30/16 21:17 Completed TROPONIN I Stat LAB 09/30/16 21:57 Completed 0.9 % Sodium Chloride [Saline Flush] MEDS 09/30/16 21:40 Ordered 1 syr IVF PRN PRN C/Ech/St.jhnwt/Eld/Sgin/Hrb30 [Cold & Flu Fighter Cap] MEDS 10/01/16 21:00 Ordered 1 each PO BEDTIME Digoxin MEDS 10/01/16 09:00 Ordered 250 mcg PO DAILY Enoxaparin Sodium [Lovenox] MEDS 10/01/16 09:00 Ordered 40 mg SUBCUT DAILY Ferrous Sulfate [Iron] MEDS 10/01/16 09:00 Ordered 325 mg PO DAILY Furosemide [Lasix] MEDS 09/30/16 21:57 Discontinued 20 mg IVP ONCE STA Furosemide [Lasix] MEDS 10/01/16 06:30 Ordered 40 mg IVP QDAC Ipratropium/Albuterol Neb [Duoneb] MEDS 09/30/16 23:24 Ordered 1 vial NEB RTQ2H PRN Ipratropium/Albuterol Neb [Duoneb] MEDS 10/01/16 06:00 Ordered 1 vial NEB RTQID Losartan Potassium [Cozaar] MEDS 10/01/16 09:00 Ordered 50 mg PO DAILY Morphine Sulfate [Morphine 2 mg/ml Syringe] MEDS 09/30/16 23:24 Ordered 2 mg IVP Q4H PRN Ondansetron HCl/Pf [Zofran 4 mg/2 ml] MEDS 09/30/16 23:24 Ordered 4 mg IVP Q6H PRN Pantoprazole Sodium [Protonix] MEDS 10/01/16 09:00 Ordered 40 mg PO DAILY Potassium Chloride [Potassium Chloride] MEDS 10/01/16 09:00 Ordered 20 meq PO DAILY Rivaroxaban [Xarelto] MEDS 10/01/16 09:00 Ordered 20 mg PO DAILY Sodium Chloride 0.9% [Sodium Chloride] 1,000 ml MEDS 09/30/16 21:40 Active IV 125 mls/hr Sotalol HCl [Betapace] MEDS 10/01/16 09:00 Ordered 120 mg PO BID RESUSCITATION STATUS Routine OTHERS 09/30/16 23:24 Ordered CHEST, 1V AP ONLY Stat RADS 09/30/16 21:40 Completed Medications Generic Name Dose Route Start Last Admin Trade Name Freq PRN Reason Stop Dose Admin Albuterol/Ipratropium 1 vial 10/01/16 06:00 Duoneb NEB RTQID GEOFF Albuterol/Ipratropium 1 vial 09/30/16 23:24 Duoneb NEB RTQ2H PRN Wheezing Enoxaparin Sodium 40 mg 10/01/16 09:00 Lovenox SUBCUT DAILY GEOFF Furosemide 40 mg 10/01/16 06:30 Lasix IVP QDAC GEOFF Sodium Chloride 1,000 mls @ 125 mls/hr 09/30/16 21:40 02/27/17 22:04 Sodium Chloride IV 10/01/16 05:39 125 mls/hr .Q8H STA Administration Losartan Potassium 50 mg 10/01/16 09:00 Cozaar PO DAILY GEOFF Morphine Sulfate 2 mg 09/30/16 23:24 Morphine 2 Mg/Ml Syringe IVP Q4H PRN Severe Pain Non-Formulary Medication 1 each 10/01/16 21:00 C/Ech/St.Jhnwt/Eld/Sgin/Hrb30 [Cold & Flu Fighter Cap] PO BEDTIME GEOFF Non-Formulary Medication 250 mcg 10/01/16 09:00 Digoxin PO DAILY GEOFF Non-Formulary Medication 325 mg 10/01/16 09:00 Ferrous Sulfate [Iron] PO DAILY GEOFF Non-Formulary Medication 20 meq 10/01/16 09:00 Potassium Chloride [Potassium Chloride] PO DAILY GEOFF Non-Formulary Medication 20 mg 10/01/16 09:00 Rivaroxaban [Xarelto] PO DAILY GEOFF Non-Formulary Medication 120 mg 10/01/16 09:00 Sotalol Hcl [Betapace] PO BID GEOFF Ondansetron HCl 4 mg 09/30/16 23:24 Zofran 4 Mg/2 Ml IVP Q6H PRN Nausea / Vomiting Pantoprazole Sodium 40 mg 10/01/16 09:00 Protonix PO DAILY GEOFF Sodium Chloride 1 syr 09/30/16 21:40 Saline Flush IVF PRN PRN To flush IV Discontinued Medications Generic Name Dose Route Start Last Admin Trade Name Freq PRN Reason Stop Dose Admin Furosemide 20 mg 09/30/16 21:57 09/30/16 22:09 Lasix IVP 09/30/16 21:58 20 mg ONCE STA Administration Vital Signs: Temp Pulse Resp BP Pulse Ox 09/30/16 21:41 95.7 F L 133 H 32 H 133/96 H 94 L HR decreased < 100 to HAN Risk Score HAN Risk Score: Risk Score Odds of by 30D 0 0.1 (0.1-0.2) 1 0.3 (0.2-0.3) 2 0.4 (0.3-0.5) 3 0.7 (0.6-0.9) 4 1.2 (1.0-1.5) 5 2.2 (1.9-2.6) 6 3.0 (2.5-3.6) 7 4.8 (3.8-6.1) Departure - Departure Time of Disposition: 00:50 Disposition: ADMITTED INPATIENT Discharge Problem: Chest pain CHF (congestive heart failure) Qualifiers: Congestive heart failure type: systolic Congestive heart failure chronicity: acute Qualifier Code: (I50.21) Acute systolic (congestive) heart failure Condition: Stable Pt referred to PMD for follow-up: No (Admitted ) Allergies/Adverse Reactions: Allergies No Known Allergies Allergy (Verified 09/30/16 21:47) Home Medications: Ambulatory Orders Ferrous Sulfate [Iron] 325 mg PO DAILY 03/21/16 C/Ech/St.jhnwt/Eld/Sgin/Hrb30 [Cold & Flu Fighter Cap] 1 each PO BEDTIME Pantoprazole Sodium [Protonix] 40 mg PO DAILY 09/05/16 Digoxin [Lanoxin] 250 mcg PO DAILY #30 tablet 09/08/16 Furosemide [Lasix] 20 mg PO DAILY #30 tablet 09/08/16 Losartan Potassium [Cozaar] 50 mg PO DAILY #30 tablet 09/08/16 Potassium Chloride 10 meq PO DAILY #30 tablet.er 09/08/16 Sotalol HCl [Betapace] 120 mg PO BID #60 tablet 09/08/16 Rivaroxaban [Xarelto] 20 mg PO DAILY 09/30/16
[2016-09-30] MEDS ORDERED: LASIX IVP STA (21:57)
[2016-09-30 22:03] LABS: BASOPHILS # (AUTO) 0.1 K/uL (0-0.2); BASOPHILS % (AUTO) 0.3 % (0.0-3.0); EOSINOPHILS # (AUTO) 0.3 K/ul (0.0-0.7); EOSINOPHILS % (AUTO) 1.5 % (0.0-7.0); HEMATOCRIT 50.9 % (42.0-52.0); HEMOGLOBIN 17.8 g/dl (14.0-18.0); IMMATURE GRANULOCYTE % (AUTO) 2.1 % (0.0-5.0); LYMPHOCYTES % (AUTO) 11.6 (10.0-50.0); MEAN CORPUSCULAR HEMOGLOBIN 31.6 pg (27.0-31.0); MEAN CORPUSCULAR VOLUME 90.4 fl (80.0-94.0); MONOCYTES # (AUTO) 2.5 K/uL (0.4-2.0); MONOCYTES % (AUTO) 14.4 (0-10); NEUTROPHILS # (AUTO) 12.2 K/ul (2.0-6.9); NEUTROPHILS % (AUTO) 70.1; PLATELET COUNT 370 10^3/uL (140-440); RED BLOOD COUNT 5.63 10^6/ul (4.70-6.10); WHITE BLOOD COUNT 17.45 K/ul (4.2-10.2)
--- NOTE | 2016-09-30 22:20 | DI ---
Exam: Chest one-view History: Chest pain FINDINGS: Compared with 09/05/2016. Cardiac silhouette is within normal limits by size. Pulmonary vasculature is prominent. Edematous infiltrates are suspected. Small pleural fluid is suspected. Atherosclerotic calcification of the aorta. No acute chest wall abnormality. Impression: Interval development of vascular congestion and edematous infiltrates. Bilateral pneum onia considered less likely.
[2016-09-30 22:29] LABS: ALBUMIN 4.5 g/dL (3.4-5.0); ALBUMIN/GLOBULIN RATIO 1.55; ANION GAP 18.9; BILIRUBIN,TOTAL 1.29 mg/dL (0.00-1.20); BUN/CREATININE RATIO 11.71; CALCIUM 9.7 mg/dL (8.2-10.2); CREATININE 1.28 mg/dL (0.60-1.10); POTASSIUM 3.9 mmol/L (3.5-5.1); TOTAL PROTEIN 7.4 g/dL (5.8-8.1); TROPONIN I 0.011 ng/ml (0.0000-0.4000)
[2016-09-30 23:44] LABS: ABG PCO2 33.1 mmHg (35-45); ABG PH 7.421 (7.35-7.45)
[2016-09-30 23:45] LABS: ABG BASE EXCESS -3 (-2.0-2.0); ABG HCO3 21.6 (22.0-26.0); ABG TCO2 23 (22.0-28.0)
[2016-10-01 02:40] VITALS: BMI 25.7
[2016-10-01] MEDS ORDERED: LASIX ONE (04:43)
[2016-10-01] MEDS: DUONEB NEB SCH ×4 (06:15→19:25)
[2016-10-01] MEDS ORDERED: LASIX IVP SCH (06:30)
[2016-10-01 06:43] LABS: BASOPHILS % (AUTO) 0.2 % (0.0-3.0); EOSINOPHILS # (AUTO) 0.1 K/ul (0.0-0.7); EOSINOPHILS % (AUTO) 0.7 % (0.0-7.0); HEMATOCRIT 48.2 % (42.0-52.0); HEMOGLOBIN 16.9 g/dl (14.0-18.0); IMMATURE GRANULOCYTE % (AUTO) 1.2 % (0.0-5.0); LYMPHOCYTES # (AUTO) 1.4 K/uL (0.60-3.4); MEAN CORPUSCULAR HEMOGLOBIN 31.8 pg (27.0-31.0); MEAN CORPUSCULAR HGB CONC 35.1 (31.8-35.4); MEAN CORPUSCULAR VOLUME 90.8 fl (80.0-94.0); MONOCYTES % (AUTO) 20.7 (0-10); NEUTROPHILS # (AUTO) 13.7 K/ul (2.0-6.9); NEUTROPHILS % (AUTO) 70.2; PLATELET COUNT 368 10^3/uL (140-440); RED BLOOD COUNT 5.31 10^6/ul (4.70-6.10); WHITE BLOOD COUNT 19.47 K/ul (4.2-10.2)
[2016-10-01 06:57] LABS: ANION GAP 18.9; BUN/CREATININE RATIO 13.82; CALCIUM 9.1 mg/dL (8.2-10.2); CREATININE 1.23 mg/dL (0.60-1.10); POTASSIUM 3.9 mmol/L (3.5-5.1)
[2016-10-01] MEDS ORDERED: NON-FORMULARY MEDICATION (Potassium Chloride [Potassium Chloride] 20 MEQ) PO SCH ×22 (09:00)
[2016-10-01] MEDS ORDERED: MICRO-K CAP PO SCH (09:00)
[2016-10-01] MEDS ORDERED: NON-FORMULARY MEDICATION (Sotalol Hcl [Betapace] 120 MG) PO SCH (09:00)
[2016-10-01] MEDS ORDERED: DIGOXIN 250 MCG PO SCH (09:00)
[2016-10-01] MEDS ORDERED: NON-FORMULARY MEDICATION (Ferrous Sulfate [Iron] 325 MG) PO SCH ×22 (09:00)
[2016-10-01] MEDS ORDERED: K-DUR PO SCH (09:00)
[2016-10-01] MEDS ORDERED: NON-FORMULARY MEDICATION (Rivaroxaban [Xarelto] 20 MG) PO SCH (09:00)
[2016-10-01] MEDS: FERROUS SULFATE PO SCH (09:09)
[2016-10-01] MEDS: LANOXIN PO SCH (09:09)
[2016-10-01] MEDS: BETAPACE PO SCH ×2 (09:10→20:11)
[2016-10-01] MEDS: PROTONIX PO SCH (09:11)
[2016-10-01] MEDS: COZAAR PO SCH (09:11)
[2016-10-01] MEDS: LOVENOX SUBCUT SCH (09:13)
--- NOTE | 2016-10-01 10:06 | PN ---
DATE OF SERVICE: 09/30/16 SUBJECTIVE: 81-year-old white male who was hospitalized with shortness of breath and symptoms of congestive heart failure of 2 to 3 days' duration. The patient is noncompliant, has history of atrial fib and CHF. The patient is on Xarelto, Lasix, Lanoxin, is noncompliant. The takes care of him. He is a difficult patient. REVIEW OF SYSTEMS: CONSTITUTIONAL: No night sweats. No fever or chills. HEENT: Eyes: No visual changes. No eye pain. No eye discharge. ENT: No runny nose. No epistaxis. No sinus pain. No sore throat. No odynophagia. No congestion. RESPIRATORY: No cough, no congestion. No hemoptysis. CARDIOVASCULAR: No angina symptoms. No CHF symptoms. No atypical chest pain for CAD. No palpitations. Shortness of breath. GASTROINTESTINAL: No abdominal pain. No nausea or vomiting. No diarrhea or constipation. No hematemesis. No hematochezia. GENITOURINARY: No urgency. No frequency. No dysuria. No hematuria. No obstructive symptoms. No discharge. No pain. No significant abnormal bleeding. MUSCULOSKELETAL: No musculoskeletal pain; no joint swelling. NEUROLOGICAL: No headache. No neck pain. No syncope. No seizures. No dizziness. PSYCHIATRIC: Not anxious. No depression. No suicidal thoughts. No homicidal thoughts. SKIN: No rash. No lesions. No wounds. ENDOCRINE: No unexplained weight loss. No weight gain. HEMATOLOGIC/LYMPHATIC: No anemia. No purpura. No petechiae. No prolonged or excessive bleeding. No palpable lymph nodes. PHYSICAL EXAMINATION: GENERAL: The patient is oriented to time, place and person. VITAL SIGNS: Temperature 98, pulse 120/min, respiratory rate 17, BP 138/72. HEENT: Head normocephalic, atraumatic. Eyes: Extraocular muscles are intact. Pupils are equal, round and reactive to light and accommodation. Ears: No lesions. Nose appeared normal. Throat: No exudate or erythema. NECK: Supple. JVP 4 cm. No carotid bruit. No lymphadenopathy or thyromegaly. LUNGS: Decreased breath sounds bilaterally with mild wheeze. Clear to auscultation. Percussion note normal. Chest symmetrical. HEART: S1, S2, questionable S3. No murmurs. No cyanosis or clubbing. No ascites. Pulses: Dorsalis pedis and posterior tibial pulses +1 to +2 both sides. ABDOMEN: Soft. Nontender. Bowel sounds active. No CVA tenderness. No mass felt. EXTREMITIES: +1 to +2 pitting edema. Full range of motion of all extremities, equal. NEUROLOGIC: No focal deficit. Cranial nerves II through XII are grossly intact. No headache, no double vision or headache. SKIN: Not dry. Intact. Turgor - normal. LYMPHATIC: No palpable lymph nodes/no lymphedema. MUSCULOSKELETAL: Normal joints with no swelling. Muscle tone is normal. ASSESSMENT: 1. CHF 2. ATRIAL FIBRILLATION WITH RAPID VENTRICULAR RESPONSE 3. HYPERTENSION 4. LEG EDEMA FROM CHF 5. CHRONIC LUNG DISEASE PLAN: 1. IV Lasix now 2. Elevate the legs 3. Lanoxin level 4. Telemetry 5. Continue Xarelto 6. Continue Lanoxin 7. Give extra dose of Lanoxin 0.25 now and 0.25 at 1 o'clock to slow the ventricular rate 8. Again, educated about CHF CONDITION: Stable TIME SPENT: More than 30 minutes. Plan and coordination of the patient's care discussed in the presence of nurse. LETICIA
[2016-10-01] MEDS ORDERED: DECADRON 4 MG/ML SDV IM STA (10:20)
[2016-10-01] MEDS ORDERED: LANOXIN IVP STA (13:29)
[2016-10-01] MEDS: XARELTO PO SCH (17:00)
[2016-10-01] MEDS: MORPHINE 2 MG/ML SYRINGE IVP PRN (20:12)
[2016-10-01] MEDS: [UNRECOGNIZED DRUG - MIXTURE] PO SCH (20:27)
[2016-10-02] MEDS: ZOFRAN 4 MG/2 ML IVP PRN ×2 (03:14→19:37)
[2016-10-02] MEDS: DUONEB NEB SCH ×4 (04:16→20:30)
[2016-10-02 05:11] LABS: BASOPHILS % (AUTO) 0.1 % (0.0-3.0); EOSINOPHILS % (AUTO) 0.1 % (0.0-7.0); HEMATOCRIT 41.9 % (42.0-52.0); HEMOGLOBIN 14.9 g/dl (14.0-18.0); IMMATURE GRANULOCYTE % (AUTO) 1.5 % (0.0-5.0); LYMPHOCYTES % (AUTO) 6.2 (10.0-50.0); MEAN CORPUSCULAR HEMOGLOBIN 31.8 pg (27.0-31.0); MEAN CORPUSCULAR HGB CONC 35.6 (31.8-35.4); MEAN CORPUSCULAR VOLUME 89.5 fl (80.0-94.0); MONOCYTES # (AUTO) 4.5 K/uL (0.4-2.0); MONOCYTES % (AUTO) 26.6 (0-10); NEUTROPHILS # (AUTO) 11.1 K/ul (2.0-6.9); NEUTROPHILS % (AUTO) 65.5; PLATELET COUNT 295 10^3/uL (140-440); RED BLOOD COUNT 4.68 10^6/ul (4.70-6.10); WHITE BLOOD COUNT 16.89 K/ul (4.2-10.2)
[2016-10-02] MEDS ORDERED: LANOXIN IVP ONE (06:00)
[2016-10-02] MEDS: LASIX IVP SCH (06:01)
[2016-10-02] MEDS: PROTONIX PO SCH ×2 (06:02→17:19)
[2016-10-02 06:19] LABS: BUN/CREATININE RATIO 17.15; CREATININE 1.69 mg/dL (0.60-1.10)
[2016-10-02 06:20] LABS: CALCIUM 8.9 mg/dL (8.2-10.2)
[2016-10-02] MEDS ORDERED: LASIX IVP SCH (06:30)
[2016-10-02] MEDS ORDERED: DECADRON 4 MG/ML SDV IM STA (09:02)
[2016-10-02] MEDS ORDERED: COZAAR PO SCH ×2 (09:04→09:30)
[2016-10-02] MEDS: LOVENOX SUBCUT SCH (09:39)
[2016-10-02] MEDS: ALDACTONE PO SCH (09:40)
[2016-10-02] MEDS: FERROUS SULFATE PO SCH (09:40)
[2016-10-02] MEDS: LANOXIN PO SCH (09:41)
[2016-10-02] MEDS: BETAPACE PO SCH ×2 (09:54→20:02)
[2016-10-02] MEDS: COZAAR PO SCH (09:55)
--- NOTE | 2016-10-02 12:59 | PCM.PROG ---
Attending Provider: ATTENDING PROVIDER: Dr. JENNIFER ADORNO DATE OF SERVICE: 10/02/16 SUBJECTIVE: This 81 year old WHITE/ M was hospitalized 09/30/16. The patient is hospitalized with atrial fibrillation and CHF. The patient's heart rate required Sotalol 120 mg twice a day and Lanoxin 250 mcg and has been barely controlled with rate of 100/min. The patient's edema is trace in the legs. The lungs have more air entry with a few creps. The patient has chronic lung disease which is mild. REVIEW OF SYSTEMS: CONSTITUTIONAL: No night sweats. No fatigue, malaise, lethargy. No fever or chills. HEENT: Eyes: No visual changes. No eye pain. No eye discharge. ENT: No runny nose. No epistaxis. No sinus pain. No odynophagia. No congestion. RESPIRATORY: No cough, no congestion. No hemoptysis. CARDIOVASCULAR: No angina symptoms. No CHF symptoms. No atypical chest pain for CAD. No palpitations. No shortness of breath. GASTROINTESTINAL: No abdominal pain. No nausea or vomiting. No diarrhea or constipation. No hematemesis. No hematochezia. GENITOURINARY: No urgency. No frequency. No dysuria. No hematuria. No obstructive symptoms. No discharge. No pain. No significant abnormal bleeding. MUSCULOSKELETAL: No musculoskeletal pain; no joint swelling. NEUROLOGICAL: Awake, alert, oriented to time, place and person. No headache. No neck pain. No syncope. No seizures. No dizziness. PSYCHIATRIC: Not anxious. No depression. No suicidal thoughts. No homicidal thoughts. SKIN: No rash. No lesions. No wounds. ENDOCRINE: No unexplained weight loss. No weight gain. HEMATOLOGIC/LYMPHATIC: No anemia. No purpura. No petechiae. No prolonged or excessive bleeding. No palpable lymph nodes. PHYSICAL EXAMINATION: GENERAL: The patient is awake, alert and oriented, sitting in chair in no distress. VITAL SIGNS: Temperature 95.0 F, Pulse 98, Respiratory Rate 26, BP 91/70, Pulse Ox 97% HEENT: Head normocephalic, atraumatic. Eyes: Extraocular muscles are intact. Pupils are equal, round and reactive to light and accommodation. Ears: No lesions. Nose appeared normal. Throat: No exudate or erythema. NECK: Supple. No JVP, no carotid bruit. No lymphadenopathy or thyromegaly. LUNGS: Decreased breath sounds with few creps at the bases. Percussion note normal. Chest symmetrical. HEART: S1, S2, no S3. No murmurs. No cyanosis or clubbing. No ascites. Pulses: Dorsalis pedis and posterior tibial pulses +1 to +2 both sides. ABDOMEN: Soft. Non-tender. Bowel sounds active. No CVA tenderness. No mass felt. EXTREMITIES: No edema. Full range of motion of all extremities, equal. NEUROLOGIC: No focal deficit. Cranial nerves II through XII are grossly intact. No headache, no double vision or headache. SKIN: Not dry. Intact. Turgor-normal. LYMPHATIC: No palpable lymph nodes/no lymphedema. MUSCULOSKELETAL: Normal joints with no swelling. Muscle tone is normal. LAB REVIEW: 10/02/16 05:07 10/02/16 05:07 10/02/16 05:07: WBC 16.89 H, RBC 4.68 L, Hgb 14.9, Hct 41.9 L D, MCV 89.5, MCH 31.8 H, MCHC 35.6 H, RDW Coeff of Panfilo 15.3 H, Plt Count 295, Immature Gran % ( Auto) 1.5, Neut % (Auto) 65.5, Lymph % (Auto) 6.2 L, [place] % (Auto) 26.6 H, Eos % (Auto) 0.1, Baso % (Auto) 0.1, Immature Gran # (Auto) 0.3, Neut # 11.1 H, Lymph # 1.0, [place] # 4.5 H, Eos # 0.0, Baso # 0.0, Sodium 137, Potassium 4.0, Chloride 101, Carbon Dioxide 23, Anion Gap 17.0, BUN 29 H, Creatinine 1.69 H, Estimated GFR (MDRD) 39.00, BUN/Creatinine Ratio 17.15, Glucose 121 H, Calcium 8.9 10/01/16 05:30: Digoxin 0.84 L ASSESSMENT: 1. CHF 2. ATRIAL FIBRILLATION WITH RAPID VENTRICULAR RESPONSE 3. HYPERTENSION 4. LEG EDEMA FROM CHF 5. CHRONIC LUNG DISEASE PLAN: 1. BNP tomorrow 2. Protonix twice a day 3. Lanoxin level tomorrow a.m. 4. 1 cc Decadron 5. BP is 91/70, so will decrease dose of Cozaar to 25 mg and decrease Sotalol to 80 mg twice a day. 6. Otherwise will continue same management. On Echocardiogram performed during previous hospitalization a few weeks ago, showed LA cavity 4.2 cm with moderate mitral regurgitation. With aggressive diuretic therapy, creatinine was 1.6 and BUN 29. I feel that Aldactone may not work in conjunction with Lasix. LV size is 5.5 cm.with borderline LVH; ejection fraction 50 to 55%. Plan and coordination of the patient's care discussed in the presence of Carpentry Professional and nurse. EDUCATION: A lengthy discussion with the patient and was carried out answering all their questions concerning diagnoses, plan of care, et cetera. They voiced understanding. CONDITION: Stable SCRIBED BY: SAM MORA, [employer] Area Supervisor scribed while in presence of service performed by Dr. JENNIFER ADORNO on 10/02/16 ([id number])
--- NOTE | 2016-10-02 13:34 | PN ---
DATE OF SERVICE: 10/01/16 SUBJECTIVE: The patient is a 81 year old white male hospitalized with CHF exacerbation. The patient's condition improved some according to the , he is breathing a lot better. The patient was supposed to get a couple of doses of Lanoxin which was not done in the emergency room but in any case the patient's atrial fibrillation has rate 120 and he doesn't seem to be in distress this morning. REVIEW OF SYSTEMS: CONSTITUTIONAL: No night sweats. No fatigue, malaise, lethargy. No fever or chills. HEENT: Eyes: No visual changes. No eye pain. No eye discharge. ENT: No runny nose. No epistaxis. No sinus pain. No sore throat. No odynophagia. No congestion. RESPIRATORY: No cough, no congestion. No hemoptysis. CARDIOVASCULAR: No angina symptoms. No CHF symptoms. No atypical chest pain for CAD. No palpitations. No shortness of breath. GASTROINTESTINAL: No abdominal pain. No nausea or vomiting. No diarrhea or constipation. No hematemesis. No hematochezia. GENITOURINARY: No urgency. No frequency. No dysuria. No hematuria. No obstructive symptoms. No discharge. No pain. No significant abnormal bleeding. MUSCULOSKELETAL: No musculoskeletal pain; no joint swelling. NEUROLOGICAL: No headache. No neck pain. No syncope. No seizures. No dizziness. PSYCHIATRIC: Not anxious. No depression. No suicidal thoughts. No homicidal thoughts. SKIN: No rash. No lesions. No wounds. ENDOCRINE: No unexplained weight loss. No weight gain. HEMATOLOGIC/LYMPHATIC: No anemia. No purpura. No petechiae. No prolonged or excessive bleeding. No palpable lymph nodes. PHYSICAL EXAMINATION: GENERAL: The patient is oriented to time, place and person. VITAL SIGNS: Temperature 97.5, pulse 100 irregular, respiratory 20, blood pressure 117/88 and pulse ox 97%. HEENT: Head normocephalic, atraumatic. Eyes: Extraocular muscles are intact. Pupils are equal, round and reactive to light and accommodation. Ears: No lesions. Nose appeared normal. Throat: No exudate or erythema. NECK: Supple. No JVD, no carotid bruit. No lymphadenopathy or thyromegaly. LUNGS: Crepitations bilaterally with poor air entry. Clear to auscultation. Percussion note normal. Chest symmetrical. HEART: S1, S2 irregular and questionable S3. No murmurs. No cyanosis or clubbing. No ascites. Pulses: Dorsalis pedis and posterior tibial pulses +1 to +2 both sides. ABDOMEN: Soft. Nontender. Bowel sounds active. No CVA tenderness. No mass felt. EXTREMITIES: +1 to +2 pitting edema but according to the the edema is much less. Full range of motion of all extremities, equal. NEUROLOGIC: No focal deficit. Cranial nerves II through XII are grossly intact. No headache, no double vision or headache. SKIN: Not dry. Intact. Turgor - normal. LYMPHATIC: No palpable lymph nodes/no lymphedema. MUSCULOSKELETAL: Normal joints with no swelling. Muscle tone is normal. LABS: Hgb 17.8, hct 50, WBC 17,000 normal differentia, creatinine 1.2, BUN 15 that was for 09/30/16. ASSESSMENT: 1. Congestive Heart Failure 2. Atrial Fibrillation with rapid ventricular response 3. Hypertensive heart disease with history of hypertension 4. Non-compliance. PLAN: 1. Give Lanoxin oral dose this morning 2. Lanoxin 0.25mg IV at 2pm and another dose at 6pm 3. Lanoxin level to be done in the morning 4. 1 cc Decadron today 5. Aldactone is going to be added 25mg daily with IV Lasix 20mg 6. Elevated the legs 7. Diet discussed 8. CHF discussed in detail and how to manage it with daily weights. If the weight gain is more than 2 pounds to give himself extra Lasix PO. The patient is not serious at all. Depends on his for all his medical problems, noncompliant. CONDITION: Stable. TIME SPENT: More than 30 minutes. Plan and coordination of the patient's care discussed in the presence of nurse. LETICIA
--- NOTE | 2016-10-02 14:04 | HP ---
DATE OF SERVICE: 09/30/16 REASON FOR HOSPITALIZATION: Shortness of breath and leg swelling. HISTORY OF PRESENT ILLNESS: The patient is a80 year old white male was brought to the emergency room by his because of increased shortness of breath and leg swelling. The patient was seen and examined in ER by ER attending and underwent the work up where his chest x-ray showed vascular congestion and edematous infiltrate. Also his BNP nathanael to 1,035. The patient has history of atrial fibrillation and congestive heart failure and was hospitalized recently on 09/05/16. Recently the patient was seen on Followup on the second time on 09/26/16 where he had stopped taking his Eliquis and some of this medications like Lanoxin and Lasix. The patient is very difficult to work with. It seems to be that patient has early dementia and has been argumentative in a pleasant way. REVIEW OF SYSTEMS: CONSTITUTIONAL: No night sweats. Weakness and fatigue. No fever or chills. HEENT: Eyes: No visual changes. No eye pain. No eye discharge. ENT: No runny nose. No epistaxis. No sinus pain. No sore throat. No odynophagia. No ear pain. No congestion. RESPIRATORY: Mild cough, no congestion. No hemoptysis. Shortness of breath. CARDIOVASCULAR: No angina symptoms. No CHF symptoms. No atypical chest pain for CAD. No palpitations. No shortness of breath. PND and Orthopnea for past three to four days with shortness of breath on minimal exertion. No chest pain. GASTROINTESTINAL: No abdominal pain. No nausea or vomiting. No diarrhea or constipation. No hematemesis. No hematochezia. Poor appetite for past two to three days. GENITOURINARY: No urgency. No frequency. No dysuria. No hematuria. No obstructive symptoms. No discharge. No pain. No significant abnormal bleeding. MUSCULOSKELETAL: No musculoskeletal pain. No joint swelling. No arthritis. NEUROLOGICAL: No headache. No neck pain. No syncope. No seizures. No dizziness. PSYCHIATRIC: Not anxious. No depression. No suicidal thoughts. No homicidal thoughts. SKIN: No rash. No lesions. No wounds. ENDOCRINE: No unexplained weight loss. No weight gain. HEMATOLOGIC/LYMPHATIC: No anemia. No purpura. No petechiae. No prolonged or excessive bleeding. No palpable lymph nodes. PERSONAL/FAMILY/SOCIAL HISTORY: The patient is and lives with his . The patient is argumentative. I think he has early Dementia. he is trying to compensate by being a joker. He does all activity of daily living. No smoker and no alcohol abuse. PAST MEDICAL/SURGICAL PROBLEMS: History atrial fibrillation Congestive heart failure Hypertension Reflux COPD Large Hiatal hernia Anemia Right adrenal nodules Microvalve prolapse with moderate mitral regurg. LA size 4.2cm size LV size 5.5cm size LV ejection fraction 55% with LVH mild. MEDICATIONS: Ferrous Sulfate 325mg PO daily Pantoprazole 40mg PO daily Digoxin 250mcg PO daily Lasix 20mg PO daily Losartan 50mg PO daily Potassium Chloride 10meq PO daily Sotalol 120mg PO twice a day Xarelto 20mg PO daily ALLERGIES: None PHYSICAL EXAMINATION: GENERAL: The patient is oriented to time, place and person. VITAL SIGNS: Temperature 97.5, pulse 120 irregular respiratory 20, blood pressure 130/88 and pulse ox 97% on 2 liters. HEENT: Head normocephalic, atraumatic. Eyes: Extraocular muscles are intact. Pupils are equal, round and reactive to light and accommodation. Ears: No lesions. Nose appeared normal. Throat: No exudate or erythema. NECK: Supple. JVP 2cm, no carotid bruit. No lymphadenopathy or thyromegaly. FACE: Symmetrical no icterus. LUNGS: Decreased breath sounds bilaterally with few crepitations of the bases. Percussion note normal. Chest symmetrical. HEART: S1, S2 irregularly irregular rate 120-30 per minute.No S3. No murmurs. No cyanosis or clubbing. No ascites. Pulses: Dorsalis pedis and posterior tibial pulses +1 to +2 both sides. ABDOMEN: Soft. Nontender. Bowel sounds active. No CVA tenderness. No mass felt. EXTREMITIES: +2 pitting edema. Full range of motion of all extremities, equal. Pulses +1 bilaterally. NEUROLOGIC: No focal deficit. Cranial nerves II through XII are grossly intact. No headache, no double vision or headache. SKIN: Not dry. Intact. Turgor - normal. LYMPHATIC: No palpable lymph nodes/no lymphedema. MUSCULOSKELETAL: Normal joints with no swelling. Muscle tone is normal. LABS: Hgb 17, hct 50, WBC 17,000 normal differential, creatinine 1.2, BUN 15, potassium 3.9, glucose 143, BNP 1,035. Chest x-ray vascular congestion, edematous infiltrate. Lactic acid normal, Procalcitonin normal, Digoxin level 0.78. ASSESSMENT: 1. Acute congestive heart failure 2. Atrial fibrillation with rapid ventricular response 3. Mitral valve prolapse with mitral regurg 4. COPD 5. Hypertension 6. Borderline LVH with LA cavity 4.2cm with LV size 5.5cm. 7. Large hiatal hernia 8. Insomnia 9. Possible early Dementia 10.Right Adrenal nodule 11.Noncompliance. PLAN: 1. IV Lasix 40mg PO now 2. Elevate the legs 3. CHF education carried out 4. DASH diet discussed 5. Telemetry 6. Continue Xarelto, Lasix and Aldactone 7. Monitor CBC and CMP 8. Extra dose of Lanoxin to be given today 0.25mg twice. The patient already had 0.25mg in the morning. 9. Sotalol to be continued 120mg twice a day 10.Reflux measures also explained to the patient. 11.Intracranial bleed and GI bleed discussed as part of side effects of Xarelto just like any other NORVAL blood thinners. Discussed with the patient and the family. The patient's in the room. The patient was on Eliquis and he said that he was not feeling good with Eliquis, he has some nonspecific complaints regarding it so the patient was switched to Xarelto on 09/26/16 at that time he was given some samples of 20mg one a day. CONDITION: Stable. TIME SPENT: More than 70 minutes. MTDD
[2016-10-02] MEDS: MORPHINE 2 MG/ML SYRINGE IVP PRN ×2 (16:22→20:02)
[2016-10-02] MEDS: XARELTO PO SCH (16:57)
[2016-10-02] MEDS ORDERED: GI COCKTAIL PO STA (19:28)
[2016-10-02] MEDS ORDERED: TORADOL IVP STA (19:28)
[2016-10-02] MEDS: [UNRECOGNIZED DRUG - MIXTURE] PO SCH (20:01)
[2016-10-02] MEDS: XANAX PO SCH (20:02)
[2016-10-03] MEDS: DUONEB NEB SCH ×4 (05:16→20:05)
[2016-10-03] MEDS: LASIX IVP SCH (05:41)
[2016-10-03] MEDS: PROTONIX PO SCH ×2 (05:42→17:15)
[2016-10-03 06:26] LABS: BASOPHILS % (AUTO) 0.2 % (0.0-3.0); EOSINOPHILS # (AUTO) 0.1 K/ul (0.0-0.7); EOSINOPHILS % (AUTO) 0.5 % (0.0-7.0); HEMOGLOBIN 15.9 g/dl (14.0-18.0); IMMATURE GRANULOCYTE % (AUTO) 1.7 % (0.0-5.0); LYMPHOCYTES # (AUTO) 1.2 K/uL (0.60-3.4); LYMPHOCYTES % (AUTO) 6.1 (10.0-50.0); MEAN CORPUSCULAR HEMOGLOBIN 31.4 pg (27.0-31.0); MEAN CORPUSCULAR HGB CONC 35.3 (31.8-35.4); MEAN CORPUSCULAR VOLUME 88.9 fl (80.0-94.0); MONOCYTES # (AUTO) 4.8 K/uL (0.4-2.0); MONOCYTES % (AUTO) 25.3 (0-10); NEUTROPHILS # (AUTO) 12.6 K/ul (2.0-6.9); NEUTROPHILS % (AUTO) 66.2; PLATELET COUNT 338 10^3/uL (140-440); RED BLOOD COUNT 5.06 10^6/ul (4.70-6.10); WHITE BLOOD COUNT 18.98 K/ul (4.2-10.2)
[2016-10-03 06:40] LABS: ANION GAP 18.4; BUN/CREATININE RATIO 27.33; CALCIUM 9.2 mg/dL (8.2-10.2); CREATININE 1.5 mg/dL (0.60-1.10); POTASSIUM 4.4 mmol/L (3.5-5.1)
[2016-10-03] MEDS: MORPHINE 2 MG/ML SYRINGE IVP PRN (07:13)
[2016-10-03] MEDS ORDERED: XANAX PO PRN (08:41)
[2016-10-03] MEDS ORDERED: DECADRON 4 MG/ML SDV IM STA (08:41)
--- NOTE | 2016-10-03 09:52 | DI ---
EXAM: PA and lateral views of the chest HISTORY: Congestive heart failure and shortness of breath COMPARISON: Chest x-ray 09/30/2016 FINDINGS: The cardiomediastinal silhouette is unchanged. There is no pneumothorax. There are smal l pleural effusions with pulmonary vascular indistinctness most pronounced in the lower lobes. Ther e is minimal bibasilar consolidations. The osseous structures are stable. IMPRESSION: Pulmonary vascular indistinctness with small pleural effusions suggestive of pulmonary edema. Small bilateral lower lobe consolidations likely representing atelectasis.
--- NOTE | 2016-10-03 10:12 | CT ---
EXAM: CT abdomen pelvis without contrast HISTORY: Chest versus epigastric pain COMPARISON: 12/19/2015 TECHNIQUE: CT abdomen pelvis performed without intravenous contrast. Coronal and sagittal reformat ryan images obtained. FINDINGS: Granulomatous calcification right hilar region. There are moderate bilateral pleural eff usions, right greater than left. There is interstitial septal thickening at lung bases, consistent with interstitial edema. There is bibasilar consolidation. Heart moderately enlarged. No free air. No acute abnormalities of the bones. Evaluation organ parenchyma limited without contrast. Liver appears normal. Gallbladder decompressed and poorly evaluated. Questionable gallstones. Pancreas appears normal. Spleen appears normal. There is a right adrenal nodule measuring 2.4 x 2.6 cm and 30 HU, unchanged. Left adrenal gland appears normal. Sub centimeter exophytic right renal cyst. No hydronephrosis or nephrolithiasis. Bladder appears normal. Prostate moderately enlarged with calc ification. Small bilateral inguinal hernias, both containing small portions of nonobstructed small bowel. Aorta normal in caliber. Atherosclerosis. No lymphadenopathy or ascites. There is body w all edema. Moderate hiatal hernia. No dilated loops small bowel. Appendix appears normal. There is colonic diverticulosis. Small fat-containing umbilical hernia. IMPRESSION: 1. No acute abnormality identified in the abdomen or pelvis. 2. Congestive heart failure/interstitial edema with moderate bilateral pleural effusions, left grea ter than right. Additionally, there is bibasilar consolidation that may represent dependent edema a nd/or superimposed pneumonia. 3. Body wall edema. 4. Enlarged prostate. 5. Colonic diverticulosis. 6. Small bilateral inguinal hernias, both containing small portions of nonobstructed small bowel. 7. Indeterminate right renal nodule, unchanged from 12/19/2015. Recommend correlation with MRI or CT adrenal protocol for further characterization. 8. Moderate hiatal hernia. 9. Gallbladder decompressed and poorly evaluated. Questionable cholelithiasis.
[2016-10-03] MEDS: ROCEPHIN 1 GM in SODIUM CHLORIDE 100 ML IV SCH (10:53)
[2016-10-03] MEDS: ALDACTONE PO SCH (10:55)
[2016-10-03] MEDS: BETAPACE PO SCH ×2 (10:56→21:12)
[2016-10-03] MEDS: FERROUS SULFATE PO SCH (10:57)
[2016-10-03] MEDS: LANOXIN PO SCH (10:57)
[2016-10-03] MEDS: LEXAPRO PO SCH (10:58)
[2016-10-03] MEDS: LOVENOX SUBCUT SCH (10:58)
[2016-10-03] MEDS: ZOFRAN 4 MG/2 ML IVP PRN (11:07)
[2016-10-03] MEDS: TUSSIONEX PO SCH ×2 (11:09→21:12)
[2016-10-03] MEDS: DUONEB NEB PRN (12:14)
--- NOTE | 2016-10-03 13:04 | PCM.PROG ---
Attending Provider: ATTENDING PROVIDER: Dr. JENNIFER ADORNO DATE OF SERVICE: 10/03/16 SUBJECTIVE: This 81 year old WHITE/ M was hospitalized 09/30/16. The patient was hospitalized with CHF and atrial fibrillation. The patient has a mild cough with some bronchitis type of symptoms. No PND, no orthopnea. No fever, no chills. The patient is talkative, oriented times three. The patient had nausea yesterday with reflux type symptoms but is better today. He had insomnia and was given Xanax and this helped him to rest. The feels the patient is depressed so will start patient on Lexapro. REVIEW OF SYSTEMS: CONSTITUTIONAL: No night sweats. No fatigue, malaise, lethargy. No fever or chills. HEENT: Eyes: No visual changes. No eye pain. No eye discharge. ENT: No runny nose. No epistaxis. No sinus pain. No odynophagia. No congestion. RESPIRATORY: Mild cough, no congestion. No hemoptysis. CARDIOVASCULAR: No angina symptoms. No CHF symptoms. No atypical chest pain for CAD. No palpitations. No shortness of breath. No PND, no orthopnea. GASTROINTESTINAL: No abdominal pain. No nausea or vomiting. No diarrhea or constipation. No hematemesis. No hematochezia. GENITOURINARY: No urgency. No frequency. No dysuria. No hematuria. No obstructive symptoms. No discharge. No pain. No significant abnormal bleeding. MUSCULOSKELETAL: No musculoskeletal pain; no joint swelling. NEUROLOGICAL: Awake, alert, oriented to time, place and person. No headache. No neck pain. No syncope. No seizures. No dizziness. PSYCHIATRIC: Depression/anxious. No suicidal thoughts. No homicidal thoughts. SKIN: No rash. No lesions. No wounds. ENDOCRINE: No unexplained weight loss. No weight gain. HEMATOLOGIC/LYMPHATIC: No anemia. No purpura. No petechiae. No prolonged or excessive bleeding. No palpable lymph nodes. PHYSICAL EXAMINATION: GENERAL: The patient is awake, alert and oriented, sitting in chair in no distress. VITAL SIGNS: Temperature 97.4 F, Pulse 94, Respiratory Rate 22, BP 105/83, Pulse Ox 92% HEENT: Head normocephalic, atraumatic. Eyes: Extraocular muscles are intact. Pupils are equal, round and reactive to light and accommodation. Ears: No lesions. Nose appeared normal. Throat: No exudate or erythema. NECK: Supple. No JVD, no carotid bruit. No lymphadenopathy or thyromegaly. LUNGS: Decreased breath sounds with a few creps at the bases. Percussion note normal. Chest symmetrical. HEART: S1, S2, no S3. No murmurs. No cyanosis or clubbing. No ascites. Pulses: Dorsalis pedis and posterior tibial pulses +1 to +2 both sides. ABDOMEN: Soft. Non-tender. Bowel sounds active. No CVA tenderness. No mass felt. EXTREMITIES: Trace edema. Full range of motion of all extremities, equal. NEUROLOGIC: No focal deficit. Cranial nerves II through XII are grossly intact. No headache, no double vision or headache. SKIN: Not dry. Intact. Turgor-normal. LYMPHATIC: No palpable lymph nodes/no lymphedema. MUSCULOSKELETAL: Normal joints with no swelling. Muscle tone is normal. LAB REVIEW: 10/03/16 06:00 10/03/16 06:00 10/03/16 06:00: WBC 18.98 H, RBC 5.06, Hgb 15.9, Hct 45.0, MCV 88.9, MCH 31.4 H , MCHC 35.3, RDW Coeff of Panfilo 15.1 H, Plt Count 338, Immature Gran % (Auto) 1.7 , Neut % (Auto) 66.2, Lymph % (Auto) 6.1 L, [place] % (Auto) 25.3 H, Eos % (Auto) 0.5, Baso % (Auto) 0.2, Immature Gran # (Auto) 0.3, Neut # 12.6 H, Lymph # 1.2, [place] # 4.8 H, Eos # 0.1, Baso # 0.0, Sodium 135 L, Potassium 4.4, Chloride 99, Carbon Dioxide 22 L, Anion Gap 18.4, BUN 41 H, Creatinine 1.50 H, Estimated GFR (MDRD) 45.00, BUN/Creatinine Ratio 27.33, Glucose 123 H, Calcium 9.2, B- Natriuretic Peptide 1667 H, Digoxin 1.96 ASSESSMENT: 1. Nausea with reflux symptoms - better today 2. Insomnia - Xanax helps 3. CHF under control 4. Atrial fibrillation heart rate 100 now, will monitor telemetry. PLAN: 1. Will start Rocephin and steroids because of bronchitis type of symptoms 2. Increase Xanax 0.25 mg for anxiety 3. Chest x-ray 4. BNP 5. CT scan of abdomen and pelvis today for persistent nausea. 6. Xarelto has been held. Digoxin level 1.96 today. 8. Lexapro 10 mg one a day, a.m. 9. 1 cc Decadron 10. Discontinue Losartan 11. Tussionex 5 mL p.o. q.12hr Plan and coordination of the patient's care discussed in the presence of Back Tufter and nurse. EDUCATION: All diagnoses discussed and explained in detail with the patient and . The patient very likely had stopped taking his medications at home. CONDITION: Stable SCRIBED BY: SAM MORA, [employer] scribed while in presence of service performed by Dr. JENNIFER ADORNO on 10/03/16 (0800)
[2016-10-03] MEDS ORDERED: LASIX IVP STA (16:24)
[2016-10-03] MEDS ORDERED: MIRALAX PO STA (17:38)
[2016-10-03] MEDS ORDERED: MIRALAX PO PRN (17:38)
[2016-10-03] MEDS: XANAX PO SCH (21:12)
[2016-10-03] MEDS: [UNRECOGNIZED DRUG - MIXTURE] PO SCH (21:13)
[2016-10-04] MEDS: DUONEB NEB SCH ×4 (05:22→19:00)
[2016-10-04 05:49] LABS: BASOPHILS % (AUTO) 0.1 % (0.0-3.0); EOSINOPHILS # (AUTO) 0.1 K/ul (0.0-0.7); EOSINOPHILS % (AUTO) 0.8 % (0.0-7.0); HEMATOCRIT 46.6 % (42.0-52.0); IMMATURE GRANULOCYTE % (AUTO) 2.6 % (0.0-5.0); LYMPHOCYTES # (AUTO) 0.9 K/uL (0.60-3.4); MEAN CORPUSCULAR HEMOGLOBIN 31.3 pg (27.0-31.0); MEAN CORPUSCULAR HGB CONC 34.3 (31.8-35.4); MEAN CORPUSCULAR VOLUME 91.2 fl (80.0-94.0); MONOCYTES # (AUTO) 2.2 K/uL (0.4-2.0); MONOCYTES % (AUTO) 15.1 (0-10); NEUTROPHILS # (AUTO) 11.1 K/ul (2.0-6.9); NEUTROPHILS % (AUTO) 75.4; PLATELET COUNT 355 10^3/uL (140-440); RED BLOOD COUNT 5.11 10^6/ul (4.70-6.10); WHITE BLOOD COUNT 14.74 K/ul (4.2-10.2)
[2016-10-04] MEDS: PROTONIX PO SCH ×2 (05:55→16:45)
[2016-10-04 06:10] LABS: ANION GAP 17.2; BUN/CREATININE RATIO 27.84; CALCIUM 9.3 mg/dL (8.2-10.2); CREATININE 1.76 mg/dL (0.60-1.10); POTASSIUM 5.2 mmol/L (3.5-5.1)
[2016-10-04] MEDS ORDERED: DECADRON 4 MG/ML SDV IM STA (08:26)
[2016-10-04] MEDS: ROCEPHIN 1 GM in SODIUM CHLORIDE 100 ML IV SCH (09:20)
[2016-10-04] MEDS: TUSSIONEX PO SCH ×2 (09:20→20:15)
[2016-10-04] MEDS: LEXAPRO PO SCH (09:21)
[2016-10-04] MEDS: FERROUS SULFATE PO SCH (09:21)
[2016-10-04] MEDS: BETAPACE PO SCH ×2 (09:22→20:17)
[2016-10-04] MEDS: MORPHINE 2 MG/ML SYRINGE IVP PRN ×3 (09:23→16:36)
[2016-10-04] MEDS: LOVENOX SUBCUT SCH (09:23)
--- NOTE | 2016-10-04 12:43 | PCM.PROG ---
Attending Provider: ATTENDING PROVIDER: Dr. JENNIFER ADORNO DATE OF SERVICE: 10/04/16 SUBJECTIVE: This 81 year old WHITE/ M was hospitalized 09/30/16. The patient is hospitalized with CHF. The patient says he is not feeling well; however, he did sleep well last night and is in no distress. The is in the room and states he is somewhat "down", wants to go home and is complaining of food, et cetera. REVIEW OF SYSTEMS: CONSTITUTIONAL: No night sweats. No fatigue, malaise, lethargy. No fever or chills. HEENT: The patient is very hard of hearing. Eyes: No visual changes. No eye pain. No eye discharge. ENT: No runny nose. No epistaxis. No sinus pain. No odynophagia. No congestion. RESPIRATORY: No cough, no congestion. No hemoptysis. CARDIOVASCULAR: No angina symptoms. No CHF symptoms. No atypical chest pain for CAD. No palpitations. No shortness of breath. GASTROINTESTINAL: No abdominal pain. No nausea or vomiting. No diarrhea or constipation. No hematemesis. No hematochezia. GENITOURINARY: No urgency. No frequency. No dysuria. No hematuria. No obstructive symptoms. No discharge. No pain. No significant abnormal bleeding. MUSCULOSKELETAL: No musculoskeletal pain; no joint swelling. NEUROLOGICAL: Awake, alert, oriented to time, place and person. No headache. No neck pain. No syncope. No seizures. No dizziness. PSYCHIATRIC: Not anxious. No depression. No suicidal thoughts. No homicidal thoughts. SKIN: No rash. No lesions. No wounds. ENDOCRINE: No unexplained weight loss. No weight gain. HEMATOLOGIC/LYMPHATIC: No anemia. No purpura. No petechiae. No prolonged or excessive bleeding. No palpable lymph nodes. PHYSICAL EXAMINATION: GENERAL: The patient is awake, alert and oriented, sitting in bed in no distress. VITAL SIGNS: Temperature 97.4 F, Pulse 104, Respiratory Rate 18, BP 111/93, Pulse Ox 97% HEENT: Head normocephalic, atraumatic. Eyes: Extraocular muscles are intact. Pupils are equal, round and reactive to light and accommodation. Ears: No lesions. Nose appeared normal. Throat: No exudate or erythema. NECK: Supple. No JVD, no carotid bruit. No lymphadenopathy or thyromegaly. LUNGS: Increased air entry but still has a few creps at the bases bilaterally. Percussion note normal. Chest symmetrical. HEART: S1, S2, no S3. No murmurs. No cyanosis or clubbing. No ascites. Pulses: Dorsalis pedis and posterior tibial pulses +1 to +2 both sides. ABDOMEN: Soft. Non-tender. Bowel sounds active. No CVA tenderness. No mass felt. EXTREMITIES: Trace edema. No edema of the upper extremities. Full range of motion of all extremities, equal. NEUROLOGIC: No focal deficit. Cranial nerves II through XII are grossly intact. No headache, no double vision or headache. SKIN: Not dry. Intact. Turgor-normal. LYMPHATIC: No palpable lymph nodes/no lymphedema. MUSCULOSKELETAL: Normal joints with no swelling. Muscle tone is normal. LAB REVIEW: 10/04/16 05:30 10/04/16 05:30 10/04/16 05:30: WBC 14.74 H, RBC 5.11, Hgb 16.0, Hct 46.6, MCV 91.2, MCH 31.3 H , MCHC 34.3, RDW Coeff of Panfilo 15.2 H, Plt Count 355, Immature Gran % (Auto) 2.6 , Neut % (Auto) 75.4, Lymph % (Auto) 6.0 L, [place] % (Auto) 15.1 H, Eos % (Auto) 0.8, Baso % (Auto) 0.1, Immature Gran # (Auto) 0.4, Neut # 11.1 H, Lymph # 0.9, [place] # 2.2 H, Eos # 0.1, Baso # 0.0, Sodium 137, Potassium 5.2 H, Chloride 97 L , Carbon Dioxide 28, Anion Gap 17.2, BUN 49 H, Creatinine 1.76 H, Estimated GFR (MDRD) 37.00, BUN/Creatinine Ratio 27.84, Glucose 121 H, Calcium 9.3 ASSESSMENT: 1. CHF seems to be slowly resolving 2. Mild depression 3. Mitral regurgitation 4. History of hypertension PLAN: 1. BNP today 2. Regular diet 3. Continue all other medications 4. Weigh the patient daily 5. Decrease Xanax to 0.125 t.i.d. p.r.n. 6. Hold Lanoxin 7. Restart Xarelto 8. Hold Aldactone 9. Will get a chest x-ray tomorrow 10. 1 cc Decadron 11. Toradol 30 mg Plan and coordination of the patient's care discussed in the presence of Bridge Inspector and nurse. EDUCATION: Discussed daily plan of care with the and patient, who voiced understanding and were in agreement. CONDITION: Stable SCRIBED BY: SAM MORA [facility] Manager scribed while in presence of service performed by Dr. JENNIFER ADORNO on 10/04/16 (0802)
[2016-10-04] MEDS ORDERED: LASIX IVP ONE (13:00)
[2016-10-04] MEDS: DUONEB NEB PRN (13:13)
[2016-10-04] MEDS: XANAX PO PRN ×2 (15:43→20:16)
[2016-10-04] MEDS ORDERED: LANOXIN IVP STA (16:04)
[2016-10-04] MEDS ORDERED: CARDIZEM PO ONE (16:07)
[2016-10-04] MEDS: ZOFRAN 4 MG/2 ML IVP PRN (16:27)
[2016-10-04] MEDS: XARELTO PO SCH (16:44)
[2016-10-04] MEDS ORDERED: XARELTO PO SCH (17:00)
[2016-10-04] MEDS ORDERED: DULCOLAX RC PRN (18:52)
[2016-10-04] MEDS: [UNRECOGNIZED DRUG - MIXTURE] PO SCH (20:40)
[2016-10-04] MEDS: XANAX PO SCH (21:41)
[2016-10-05] MEDS: DUONEB NEB SCH ×4 (05:11→23:37)
[2016-10-05] MEDS: PROTONIX PO SCH ×2 (05:45→17:51)
[2016-10-05 07:30] LABS: BASOPHILS # (AUTO) 0.1 K/uL (0-0.2); BASOPHILS % (AUTO) 0.3 % (0.0-3.0); EOSINOPHILS # (AUTO) 0.1 K/ul (0.0-0.7); EOSINOPHILS % (AUTO) 0.9 % (0.0-7.0); HEMATOCRIT 46.3 % (42.0-52.0); HEMOGLOBIN 16.1 g/dl (14.0-18.0); IMMATURE GRANULOCYTE % (AUTO) 3.2 % (0.0-5.0); MEAN CORPUSCULAR HEMOGLOBIN 31.1 pg (27.0-31.0); MEAN CORPUSCULAR HGB CONC 34.8 (31.8-35.4); MEAN CORPUSCULAR VOLUME 89.6 fl (80.0-94.0); MONOCYTES # (AUTO) 2.4 K/uL (0.4-2.0); MONOCYTES % (AUTO) 14.5 (0-10); NEUTROPHILS # (AUTO) 12.2 K/ul (2.0-6.9); NEUTROPHILS % (AUTO) 75.1; PLATELET COUNT 348 10^3/uL (140-440); RED BLOOD COUNT 5.17 10^6/ul (4.70-6.10); WHITE BLOOD COUNT 16.23 K/ul (4.2-10.2)
[2016-10-05 07:54] LABS: ANION GAP 19.8; BUN/CREATININE RATIO 39.37; CALCIUM 9.4 mg/dL (8.2-10.2); CREATININE 1.6 mg/dL (0.60-1.10); POTASSIUM 4.8 mmol/L (3.5-5.1)
[2016-10-05] MEDS ORDERED: DECADRON 4 MG/ML SDV IM STA (08:22)
[2016-10-05] MEDS ORDERED: MILK OF MAGNESIA PO STA (09:24)
[2016-10-05] MEDS: ALDACTONE PO SCH (09:57)
[2016-10-05] MEDS: FERROUS SULFATE PO SCH (09:58)
[2016-10-05] MEDS: LANOXIN PO SCH (09:58)
[2016-10-05] MEDS: BETAPACE PO SCH ×2 (09:58→21:38)
[2016-10-05] MEDS: ROCEPHIN 1 GM in SODIUM CHLORIDE 100 ML IV SCH (09:59)
[2016-10-05] MEDS: LEXAPRO PO SCH (09:59)
[2016-10-05] MEDS: LOVENOX SUBCUT SCH (09:59)
--- NOTE | 2016-10-05 10:00 | DI ---
EXAM: Chest two views HISTORY: Shortness of air, congestive heart failure COMPARISON: 10/03/2016 TECHNIQUE: Two views of the chest were performed FINDINGS: Heart is enlarged and unchanged. Mediastinal contour unchanged, noting atherosclerosis. There is pulmonary vascular congestion with interstitial and alveolar opacity, grossly unchanged. There are small bilateral pleural effusions. There is bibasilar atelectasis and/or consolidation. No pneumothorax. No acute abnormalities of the bones. IMPRESSION: Congestive heart failure/pulmonary edema, grossly unchanged from prior examination with small bilateral pleural effusions. Bibasilar atelectasis versus less likely pneumonia
[2016-10-05] MEDS: TUSSIONEX PO SCH ×2 (10:01→21:38)
[2016-10-05] MEDS: MORPHINE 2 MG/ML SYRINGE IVP PRN ×2 (13:08→20:30)
[2016-10-05] MEDS: XANAX PO PRN (17:14)
[2016-10-05] MEDS: XARELTO PO SCH (17:50)
[2016-10-05] MEDS: [UNRECOGNIZED DRUG - MIXTURE] PO SCH (21:37)
[2016-10-05] MEDS: XANAX PO SCH (21:39)
[2016-10-06 05:07] LABS: HEMATOCRIT 48.1 % (42.0-52.0); HEMOGLOBIN 16.4 g/dl (14.0-18.0); MEAN CORPUSCULAR HEMOGLOBIN 31.2 pg (27.0-31.0); MEAN CORPUSCULAR HGB CONC 34.1 (31.8-35.4); MEAN CORPUSCULAR VOLUME 91.4 fl (80.0-94.0); PLATELET COUNT 324 10^3/uL (140-440); RED BLOOD COUNT 5.26 10^6/ul (4.70-6.10); WHITE BLOOD COUNT 15.67 K/ul (4.2-10.2)
[2016-10-06 05:16] LABS: ANISOCYTOSIS NOT PRESENT (NOT PRESENT)
[2016-10-06] MEDS: DUONEB NEB SCH ×4 (05:21→19:33)
[2016-10-06] MEDS: PROTONIX PO SCH ×2 (05:30→18:30)
[2016-10-06 05:43] LABS: ANION GAP 18.2; BUN/CREATININE RATIO 36.36; CALCIUM 9.3 mg/dL (8.2-10.2); CREATININE 2.09 mg/dL (0.60-1.10); POTASSIUM 5.2 mmol/L (3.5-5.1)
[2016-10-06] MEDS: MORPHINE 2 MG/ML SYRINGE IVP PRN ×4 (06:02→20:31)
[2016-10-06] MEDS: XANAX PO PRN (06:29)
[2016-10-06] MEDS ORDERED: DEXTROSE 5%-1/2NS IV SOLUTION 1,000 ML IV SCH (06:30)
[2016-10-06 07:59] LABS: TROPONIN I 0.045 ng/ml (0.0000-0.4000)
[2016-10-06] MEDS ORDERED: SOLU-CORTEF 250 MG IVP STA (08:16)
[2016-10-06] MEDS: DEXTROSE 5%-1/2NS IV SOLUTION 1,000 ML IV SCH ×2 (08:27→21:26)
[2016-10-06 08:42] LABS: ABG PH 7.312 (7.35-7.45)
[2016-10-06 08:43] LABS: ABG BASE EXCESS -5 (-2.0-2.0); ABG HCO3 21.4 (22.0-26.0); ABG PCO2 42.3 mmHg (35-45); ABG TCO2 23 (22.0-28.0)
[2016-10-06] MEDS: FERROUS SULFATE PO SCH (09:00)
[2016-10-06] MEDS: TUSSIONEX PO SCH ×2 (09:00→22:06)
[2016-10-06] MEDS: ROCEPHIN 1 GM in SODIUM CHLORIDE 100 ML IV SCH (09:25)
[2016-10-06] MEDS: LOVENOX SUBCUT SCH (10:31)
[2016-10-06] MEDS ORDERED: URO-JET MUCOUSMEMB STA (11:32)
[2016-10-06] MEDS: BETAPACE PO SCH (14:01)
[2016-10-06] MEDS ORDERED: SOLU-CORTEF 250 MG IVP ONE (16:00)
[2016-10-06] MEDS: XANAX PO SCH (20:52)
[2016-10-06] MEDS: XARELTO PO SCH (20:52)
[2016-10-06] MEDS: HALDOL IM PRN (21:10)
[2016-10-06] MEDS: [UNRECOGNIZED DRUG - MIXTURE] PO SCH (22:05)
[2016-10-07] MEDS: MORPHINE 2 MG/ML SYRINGE IVP PRN ×8 (02:03→20:38)
[2016-10-07] MEDS: HALDOL IM PRN (03:07)
[2016-10-07] MEDS: DUONEB NEB SCH ×4 (04:41→19:11)
[2016-10-07] MEDS: PROTONIX PO SCH ×2 (05:55→16:59)
[2016-10-07] MEDS ORDERED: SOLU-MEDROL 125 MG IVP STA (08:21)
[2016-10-07] MEDS ORDERED: SOLU-CORTEF 250 MG IVP STA (08:40)
[2016-10-07] MEDS: LOVENOX SUBCUT SCH (08:46)
[2016-10-07] MEDS: ROCEPHIN 1 GM in SODIUM CHLORIDE 100 ML IV SCH (08:47)
[2016-10-07] MEDS ORDERED: HALDOL IM STA (08:54)
[2016-10-07] MEDS: TUSSIONEX PO SCH ×2 (10:00→21:03)
[2016-10-07] MEDS: FERROUS SULFATE PO SCH (10:00)
[2016-10-07] MEDS: DEXTROSE 5%-1/2NS IV SOLUTION 1,000 ML IV SCH (12:16)
--- NOTE | 2016-10-07 14:33 | PCM.PROG ---
Attending Provider: ATTENDING PROVIDER: Dr. JENNIFER ADORNO DATE OF SERVICE: 10/07/16 SUBJECTIVE: This 81 year old WHITE/ M was hospitalized 09/30/16. The patient is hospitalized with CHF and atrial fibrillation. The patient's overall medical condition has deteriorated. He has edema and fluid in lungs with evidence of bronchitis and may have pneumonitis along with it. The patient's mental status is the problem at the present time with confusion and psychosis, which could be mixed metabolic and hospital psychosis. To begin with, the patient has a problem with cooperation. Prior to hospitalization, he had stopped taking all medications. The medications have been stopped such as diuretic because of his abnormal kidney functions. However, besides that, he has stopped swallowing any pills. The family doesn't want any labs and declined the labs this morning. The family wants comfort measures and the patient has already been made DNR, which this has been the patient's wishes for a long time. REVIEW OF SYSTEMS: CONSTITUTIONAL: No night sweats. No fatigue, malaise, lethargy. No fever or chills. HEENT: Eyes: No visual changes. No eye pain. No eye discharge. ENT: No runny nose. No epistaxis. No sinus pain. No odynophagia. No congestion. RESPIRATORY: No cough, no congestion. No hemoptysis. CARDIOVASCULAR: No angina symptoms. No CHF symptoms. No atypical chest pain for CAD. No palpitations. No shortness of breath. GASTROINTESTINAL: No abdominal pain. No nausea or vomiting. No diarrhea or constipation. No hematemesis. No hematochezia. GENITOURINARY: No urgency. No frequency. No dysuria. No hematuria. No obstructive symptoms. No discharge. No pain. No significant abnormal bleeding. MUSCULOSKELETAL: No musculoskeletal pain; no joint swelling. NEUROLOGICAL: Awake, alert, oriented to time, place and person. No headache. No neck pain. No syncope. No seizures. No dizziness. PSYCHIATRIC: Not anxious. No depression. No suicidal thoughts. No homicidal thoughts. SKIN: No rash. No lesions. No wounds. ENDOCRINE: No unexplained weight loss. No weight gain. HEMATOLOGIC/LYMPHATIC: No anemia. No purpura. No petechiae. No prolonged or excessive bleeding. No palpable lymph nodes. PHYSICAL EXAMINATION: GENERAL: The patient is sleepy; confused sitting in chair with and family at his side. VITAL SIGNS: Temperature 93.7 F, Pulse 78, Respiratory Rate 21, BP 108/76, Pulse Ox 93% HEENT: Head normocephalic, atraumatic. Eyes: Extraocular muscles are intact. Pupils are equal, round and reactive to light and accommodation. Ears: No lesions. Nose appeared normal. Throat: No exudate or erythema. NECK: Supple. No JVD, no carotid bruit. No lymphadenopathy or thyromegaly. LUNGS: Decreased entry. Clear to auscultation. Percussion note normal. Chest symmetrical. HEART: S1, S2, no S3. No murmurs. No cyanosis or clubbing. No ascites. Pulses: Dorsalis pedis and posterior tibial pulses +1 to +2 both sides. ABDOMEN: Soft. Non-tender. Bowel sounds active. No CVA tenderness. No mass felt. EXTREMITIES: No edema. Full range of motion of all extremities, equal. NEUROLOGIC: No focal deficit. Cranial nerves II through XII are grossly intact. No headache, no double vision or headache. SKIN: Not dry. Intact. Turgor-normal. LYMPHATIC: No palpable lymph nodes/no lymphedema. MUSCULOSKELETAL: Normal joints with no swelling. Muscle tone is normal. LAB REVIEW: 10/06/16 05:05 10/06/16 05:05 10/06/16 07:15: Puncture Site Lbrach, O2 Saturation 90.0 L, ABG pH 7.312 L, ABG pCO2 42.3, ABG pO2 64.0 L, ABG HCO3 21.4 L, ABG Total CO2 23, ABG Base Excess - 5 L, O2 Delivery Device Nc, Oxygen Liter Flow 3.00, Digoxin 3.00 H* ASSESSMENT: 1. Renal azotemia likely from not drinking any fluids and also use of diuretic - patient has been receiving Lasix is receiving IV fluids, watching for fluid overload 2. Bronchitis/pneumonitis 3. CHF PLAN: 1. 125 mg SoluCortef one dose IVP. 2. Haldol 0.5 mg IM q.12 one now and other dose in evening at 5 or 6 p.m. 3. Continue other medications 4. Stop Xarelto 5. Lovenox 65 mg SQ daily The family is in the room. The patient is restless and is confused. Will treat with Haldol 0.5 q.12 and Morphine Sulfate every 2 hours. Will continue IV fluids and steroids will be given. Whatever can be done for his medication condition through parenteral route will be done. Hospice is being considered by us, will discuss with the family. Plan and coordination of the patient's care discussed in the presence of Rail Signal Mechanic and nurse. CONDITION: Stable; prognosis is poor. SCRIBED BY: SAM MORA Tangible Personal Property Appraiser scribed while in presence of service performed by Dr. JENNIFER ADORNO on 10/07/16 ([id number])
--- NOTE | 2016-10-07 14:55 | PN ---
DATE OF SERVICE: 10/06/16 SUBJECTIVE: 81-year-old white male hospitalized with congestive heart failure, atrial fibrillation but no edema. The patient's condition improved initially but has been steady. The patient's problem is that he is not cooperating, has been anxious and has been given Xanax right from the third day of the hospitalization , he wanted to go home and looks like to me that he has practically given up. Besides that, the patient is not taking deep breaths and has not been able to walk because of his deterioration of respiratory status and has developed pneumonitis. The patient has been sleepy, is being given Morphine Sulfate every 2 to 3 hours because of his anxiousness whenever he wakes up. This morning, the patient has been sleeping. I did an echocardiogram which showed normal LV contractility with moderate mitral regurgitation with mitral valve prolapse, ricketts systolic. The patient's heart rate is in the 80s and 90s with high blood pressure systolic of 130 to 140. Oxygen saturations seems to be 93% initially. Arterial blood gases repeat shows metabolic acidosis. The patient has been put on Venti mask. The patient's is present and one of the daughters also is present. They were explained about findings. The patient's understands the condition which is critical and does not want any aggressive measures like intubation or respirator. I had talked to the patient himself yesterday and he said, "Doctor you have done enough and there is no need to do too many things on me". He was somewhat "put off" with being in the hospital. REVIEW OF SYSTEMS: CONSTITUTIONAL: No night sweats. No fatigue, malaise, lethargy. No fever or chills. HEENT: Eyes: No visual changes. No eye pain. No eye discharge. ENT: No runny nose. No epistaxis. No sinus pain. No sore throat. No odynophagia. No congestion. RESPIRATORY: No cough, no congestion. No hemoptysis. CARDIOVASCULAR: No angina symptoms. No CHF symptoms. No atypical chest pain for CAD. No palpitations. No shortness of breath. GASTROINTESTINAL: No abdominal pain. No nausea or vomiting. No diarrhea or constipation. No hematemesis. No hematochezia. GENITOURINARY: No urgency. No frequency. No dysuria. No hematuria. No obstructive symptoms. No discharge. No pain. No significant abnormal bleeding. MUSCULOSKELETAL: No musculoskeletal pain; no joint swelling. NEUROLOGICAL: No headache. No neck pain. No syncope. No seizures. No dizziness. PSYCHIATRIC: Not anxious. No depression. No suicidal thoughts. No homicidal thoughts. SKIN: No rash. No lesions. No wounds. ENDOCRINE: No unexplained weight loss. No weight gain. HEMATOLOGIC/LYMPHATIC: No anemia. No purpura. No petechiae. No prolonged or excessive bleeding. No palpable lymph nodes. PHYSICAL EXAMINATION: GENERAL: The patient is , lying/sitting in bed in no distress. VITAL SIGNS: HEENT: Head normocephalic, atraumatic. Eyes: Extraocular muscles are intact. Pupils are equal, round and reactive to light and accommodation. Ears: No lesions. Nose appeared normal. Throat: No exudate or erythema. NECK: Supple. No JVP, no carotid bruit. No lymphadenopathy or thyromegaly. LUNGS: Decreased breath sounds with no wheeze. Clear to auscultation. Percussion note normal. Chest symmetrical. HEART: S1, S2, no S3. No murmurs. No cyanosis or clubbing. No ascites. Pulses: Dorsalis pedis and posterior tibial pulses +1 to +2 both sides. ABDOMEN: Soft. Nontender. Bowel sounds active. No CVA tenderness. No mass felt. EXTREMITIES: No edema. Full range of motion of all extremities, equal. NEUROLOGIC: No focal deficit. Cranial nerves II through XII are grossly intact. No headache, no double vision or headache. SKIN: Not dry. Intact. Turgor - normal. LYMPHATIC: No palpable lymph nodes/no lymphedema. MUSCULOSKELETAL: Normal joints with no swelling. Muscle tone is normal. LABS: Creatinine 2, BUN 76, potassium 5.2. ASSESSMENT: 1. Renal azotemia likely from not drinking any fluids and also clear use of diuretic. The patient hasn't been getting any Lasix for the past 48 hours. Now , the patient is going to be getting IV fluids 75 cc/hr. Will watch for fluid overload. The patient is off Lanoxin for 48 hours. Will do Lanoxin level in the morning. Will also give 250 mg IV Solu-Cortef this morning and also at 4 p.m. today. Bladder scan was done and Bay catheter was inserted. The bladder scan revealed urine to be 500 cc. PLAN: 1. Intermittent IV 2. Steroids 3. Continue Rocephin 4. Continue nebs treatment 5. Use Morphine Sulfate very judiciously 6. Xanax was used 0.125 mg dose, small this morning 7. Encourage the patient to sit up 8. At least try to get Xarelto in; the patient is unable to take any medications since morning CONDITION: Stable. PROGNOSIS: Poor TIME SPENT: More than 30 minutes. Plan and coordination of the patient's care discussed in the presence of nurse. LETICIA
--- NOTE | 2016-10-07 15:47 | PN ---
DATE OF SERVICE: 10/05/16 SUBJECTIVE: The patient is an 81 year old white male hospitalized with congestive heart failure, atrial fibrillation. The patient is feeling some what better and some what drowsy but he is sitting in the chair and walking without much help. REVIEW OF SYSTEMS: CONSTITUTIONAL: No night sweats. Mild weakness. No fever or chills. HEENT: Eyes: No visual changes. No eye pain. No eye discharge. ENT: No runny nose. No epistaxis. No sinus pain. No sore throat. No odynophagia. No congestion. RESPIRATORY: No cough, no congestion. No hemoptysis. CARDIOVASCULAR: No angina symptoms. No CHF symptoms. No atypical chest pain for CAD. No palpitations. No shortness of breath. GASTROINTESTINAL: No abdominal pain. No nausea or vomiting. No diarrhea or constipation. No hematemesis. No hematochezia. GENITOURINARY: No urgency. No frequency. No dysuria. No hematuria. No obstructive symptoms. No discharge. No pain. No significant abnormal bleeding. MUSCULOSKELETAL: No musculoskeletal pain; no joint swelling. NEUROLOGICAL: No headache. No neck pain. No syncope. No seizures. No dizziness. PSYCHIATRIC: Not anxious. No depression. No suicidal thoughts. No homicidal thoughts. SKIN: No rash. No lesions. No wounds. ENDOCRINE: No unexplained weight loss. No weight gain. HEMATOLOGIC/LYMPHATIC: No anemia. No purpura. No petechiae. No prolonged or excessive bleeding. No palpable lymph nodes. PHYSICAL EXAMINATION: GENERAL: The patient is oriented to time, place and person. VITAL SIGNS: Temperature 97.2, pulse 90, respiratory rate 16, blood pressure 123/95 and pulse ox 92%. HEENT: Head normocephalic, atraumatic. Eyes: Extraocular muscles are intact. Pupils are equal, round and reactive to light and accommodation. Ears: No lesions. Nose appeared normal. Throat: No exudate or erythema. NECK: Supple. No JVP, no carotid bruit. No lymphadenopathy or thyromegaly. LUNGS:Decrease breath sounds with good air entry. Percussion note normal. Chest symmetrical. HEART: S1, S2, no S3. No murmurs. No cyanosis or clubbing. No ascites. Pulses: Dorsalis pedis and posterior tibial pulses +1 to +2 both sides. ABDOMEN: Soft. Nontender. Bowel sounds active. No CVA tenderness. No mass felt. EXTREMITIES: Trace edema. Full range of motion of all extremities, equal. NEUROLOGIC: No focal deficit. Cranial nerves II through XII are grossly intact. No headache, no double vision or headache. SKIN: Not dry. Intact. Turgor - normal. LYMPHATIC: No palpable lymph nodes/no lymphedema. MUSCULOSKELETAL: Normal joints with no swelling. Muscle tone is normal. ASSESSMENT: 1. Congestive heart failure, seems to be resolving slowly 2. Atrial fibrillation with controlled ventricular response 3. Hypertension, controlled 4. Depression, seems to be under control but still needs to be seen 5. 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 Chronic kidney disease, steady and will back off diarrhetic for now. PLAN: 1. 1cc Decadron because patient has chronic lung disease 2. Continue NEBS treatment 3. Continue IV antibiotic 4. Will Monitor hyperkalemia with potassium of 5.2 5. Continue to monitor CHF status 6. Chest x-ray to be done this morning 7. Again educated about congestive heart failure and coronary artery disease 8. Continue Xarelto 9. The patient had edema of fluid, he has coughing up which is blood-tinge. There is no evidence of active GI bleed or so. CONDITION: Stable. TIME SPENT: More than 30 minutes. Plan and coordination of the patient's care discussed in the presence of nurse. LETICIA
[2016-10-07] MEDS: HALDOL IM SCH (18:48)
[2016-10-07] MEDS: ATIVAN IVP PRN (20:50)
[2016-10-07] MEDS: [UNRECOGNIZED DRUG - MIXTURE] PO SCH (21:02)
[2016-10-07] MEDS: XANAX PO SCH (21:03)
[2016-10-08] MEDS: MORPHINE 2 MG/ML SYRINGE IVP PRN ×3 (00:10→04:17)
[2016-10-08] MEDS: DEXTROSE 5%-1/2NS IV SOLUTION 1,000 ML IV SCH ×2 (00:39→15:59)
[2016-10-08] MEDS: ATIVAN IVP PRN ×3 (02:58→14:55)
[2016-10-08 05:09] LABS: BASOPHILS % (AUTO) 0.2 % (0.0-3.0); EOSINOPHILS % (AUTO) 0.2 % (0.0-7.0); HEMATOCRIT 45.9 % (42.0-52.0); HEMOGLOBIN 15.8 g/dl (14.0-18.0); IMMATURE GRANULOCYTE % (AUTO) 3.1 % (0.0-5.0); LYMPHOCYTES # (AUTO) 0.6 K/uL (0.60-3.4); LYMPHOCYTES % (AUTO) 2.8 (10.0-50.0); MEAN CORPUSCULAR HEMOGLOBIN 31.5 pg (27.0-31.0); MEAN CORPUSCULAR HGB CONC 34.4 (31.8-35.4); MEAN CORPUSCULAR VOLUME 91.4 fl (80.0-94.0); MONOCYTES % (AUTO) 26.4 (0-10); NEUTROPHILS # (AUTO) 15.4 K/ul (2.0-6.9); NEUTROPHILS % (AUTO) 67.3; PLATELET COUNT 250 10^3/uL (140-440); RED BLOOD COUNT 5.02 10^6/ul (4.70-6.10); WHITE BLOOD COUNT 22.79 K/ul (4.2-10.2)
[2016-10-08] MEDS: DUONEB NEB SCH ×3 (05:20→14:03)
[2016-10-08 05:33] LABS: ANION GAP 13.6; BUN/CREATININE RATIO 47.36; CALCIUM 8.4 mg/dL (8.2-10.2); CREATININE 1.33 mg/dL (0.60-1.10); POTASSIUM 4.6 mmol/L (3.5-5.1)
[2016-10-08] MEDS: PROTONIX PO SCH (05:46)
[2016-10-08] MEDS: HALDOL IM SCH (08:25)
[2016-10-08] MEDS ORDERED: LASIX IVP STA (08:26)
[2016-10-08] MEDS ORDERED: HALDOL IM PRN (08:27)
[2016-10-08] MEDS ORDERED: SOLU-CORTEF 100 MG 100 MG in SODIUM CHLORIDE 100 ML IV ONE ×2 (08:30→16:00)
[2016-10-08] MEDS: LOVENOX SUBCUT SCH (08:44)
[2016-10-08] MEDS: ROCEPHIN 1 GM in SODIUM CHLORIDE 100 ML IV SCH (08:44)
[2016-10-08] MEDS: TUSSIONEX PO SCH (08:46)
[2016-10-08] MEDS ORDERED: SOLU-CORTEF 100 MG IVP STA (09:51)
--- NOTE | 2016-10-08 11:53 | PCM.PROG ---
Attending Provider: ATTENDING PROVIDER: Dr. JENNIFER ADORNO DATE OF SERVICE: 10/08/16 SUBJECTIVE: This 81 year old WHITE/ M was hospitalized 09/30/16. The patient is hospitalized with CHF exacerbation with atrial fibrillation. The patient had stopped taking all his medications and is very uncooperative. The patient now has gone through hospital psychosis with dementia, which is early. The patient is settling down. Kidney functions are better. His oxygen saturation is 94% with oxygen. Atrial fibrillation is controlled with rate of 80 to 120 per minute. Lanoxin level becoming acceptable. Condition is stabilizing - still has periods of uncooperative behavior. Vital signs are stable. REVIEW OF SYSTEMS: CONSTITUTIONAL: No night sweats. No fatigue, malaise, lethargy. No fever or chills. HEENT: Eyes: No visual changes. No eye pain. No eye discharge. ENT: No runny nose. No epistaxis. No sinus pain. No odynophagia. No congestion. RESPIRATORY: No cough, no congestion. No hemoptysis. CARDIOVASCULAR: No angina symptoms. No CHF symptoms. No atypical chest pain for CAD. No palpitations. No shortness of breath. GASTROINTESTINAL: No abdominal pain. No nausea or vomiting. No diarrhea or constipation. No hematemesis. No hematochezia. GENITOURINARY: No urgency. No frequency. No dysuria. No hematuria. No obstructive symptoms. No discharge. No pain. No significant abnormal bleeding. MUSCULOSKELETAL: No musculoskeletal pain; no joint swelling. NEUROLOGICAL: Sleeping. No headache. No neck pain. No syncope. No seizures. No dizziness. PSYCHIATRIC: Not anxious. No depression. No suicidal thoughts. No homicidal thoughts. SKIN: No rash. No lesions. No wounds. ENDOCRINE: No unexplained weight loss. No weight gain. HEMATOLOGIC/LYMPHATIC: No anemia. No purpura. No petechiae. No prolonged or excessive bleeding. No palpable lymph nodes. PHYSICAL EXAMINATION: GENERAL: The patient is sitting in the bedside chair. He responds to his , still restless at times but is resting now. VITAL SIGNS: Temperature 95 F, Pulse 92, Respiratory Rate 14, BP 131/87, Pulse Ox 94% HEENT: Head normocephalic, atraumatic. Eyes: Extraocular muscles are intact. Pupils are equal, round and reactive to light and accommodation. Ears: No lesions. Nose appeared normal. Throat: No exudate or erythema. NECK: Supple. No JVD, no carotid bruit. No lymphadenopathy or thyromegaly. LUNGS: More air entry with a few creps. Percussion note normal. Chest symmetrical. HEART: S1, S2, no S3. No murmurs. No cyanosis or clubbing. No ascites. Pulses: Dorsalis pedis and posterior tibial pulses +1 to +2 both sides. ABDOMEN: Soft. Non-tender. Bowel sounds active. No CVA tenderness. No mass felt. EXTREMITIES: Pitting edema to lower extremities. Full range of motion of all extremities, equal. NEUROLOGIC: No focal deficit. Cranial nerves II through XII are grossly intact. No headache, no double vision or headache. SKIN: Not dry. Intact. Turgor-normal. LYMPHATIC: No palpable lymph nodes/no lymphedema. MUSCULOSKELETAL: Normal joints with no swelling. Muscle tone is normal. LAB REVIEW: 10/08/16 05:06 10/08/16 05:06 10/08/16 05:06: WBC 22.79 H D, RBC 5.02, Hgb 15.8, Hct 45.9, MCV 91.4, MCH 31.5 H, MCHC 34.4, RDW Coeff of Panfilo 16.1 H, Plt Count 250, Immature Gran % (Auto) 3.1 , Neut % (Auto) 67.3, Lymph % (Auto) 2.8 L, [place] % (Auto) 26.4 H, Eos % (Auto) 0.2, Baso % (Auto) 0.2, Immature Gran # (Auto) 0.7, Neut # 15.4 H, Lymph # 0.6, [place] # 6.0 H, Eos # 0.0, Baso # 0.0, Sodium 137, Potassium 4.6, Chloride 101, Carbon Dioxide 27, Anion Gap 13.6, BUN 63 H*, Creatinine 1.33 H D, Estimated GFR (MDRD) 51.00, BUN/Creatinine Ratio 47.36, Glucose 127 H, Calcium 8.4 ASSESSMENT: 1. Renal azotemia, receiving Lasix, watching for fluid overload 2. Bronchitis/pneumonitis 3. CHF PLAN: 1. Lasix 20 mg IV for +1 to +2 pitting edema now on the legs 2. Monitor CBC and CMP 3. Change Haldol to p.r.n. 4. SoluCortef 100 mg now and 100 at 4 p.m. 5. Continue Lovenox daily 6. Continue Rocephin daily 7. D/C Ferrous Sulfate 8. Lanoxin level Plan and coordination of the patient's care discussed in the presence of Recovery Analyst and nurse. CONDITION: Stable SCRIBED BY: SAM MORA Drawbench Operator scribed while in presence of service performed by Dr. JENNIFER ADORNO on 10/08/16 ([id number])
[2016-10-08 14:30] VITALS: BP 128/82; TEMP 97
--- NOTE | 2016-10-08 14:43 | ECHO2D ---
Date of Exam: 10/06/16 Ordering Physician: JENNIFER ADORNO Reason for Echo: SOB, CHEST PAIN, CHF Auscultation: S1, S2 Murmurs: SYSTOLIC M-Mode Normal Adult Results LV Dimensions Normal Adult Results AoV Opening excursions >1.6 >1.6 LVEDD-base- 3.5-5.8 4.6 Ao root dimensions 2.0-3.7 3.3 LVESD-base- 3.1-4.6 L. Atrium dimensions 1.9-3.8 5.7 Post. Wall thickness 0.8-1.1 1.3 IV septum (thickness) 0.7-1.2 1.3 Post. Wall excursion 0.72-1.3 NORMAL Septal motion NORMAL Systolic motion R. Ventricular cavity 1.5-2.0 NORMAL LVEF 60% 64% Paradoxical septal wall motion NORMAL 2-D : PARASYSTOLIC MITRAL VALVE PROLAPSE, NORMAL LEFT VENTRICULAR CONTRACTILITY- -ENLARGED LEFT ATRIAL CAVITY--NO EFFUSION, NO THROMBUS M-MODE: MV: PANSYSTOLIC MITRAL VALVE PROLAPSE, BOTH ANTERIOR AND POSTERIOR MITRAL LEAFLET AV: NORMAL TV: NORMAL PV: CHAMBER SIZE: ENLARGED LEFT ATRIAL CAVITY WALL MOTION: NORMAL PERICARDIUM: NORMAL INTERPRETATION: 1. LEFT VENTRICULAR HYPERTROPHY WITH ENLARGED LEFT ATRIAL CAVITY (5.7 CM) 2. NORMAL LEFT VENTRICULAR CONTRACTILITY 3. MVP 4. [] MTDD
[2016-10-08] MEDS ORDERED: SOLU-CORTEF 100 MG IVP SCH (16:00)
--- NOTE | 2016-10-09 07:14 | ECHO2D ---
Date of Exam: 10/06/16 Ordering Physician: JENNIFER ADORNO Reason for Echo: SOB, CHEST PAIN, CHF Auscultation: S1, S2 Murmurs: SYSTOLIC M-Mode Normal Adult Results LV Dimensions Normal Adult Results AoV Opening excursions >1.6 >1.6 LVEDD-base- 3.5-5.8 4.6 Ao root dimensions 2.0-3.7 3.3 LVESD-base- 3.1-4.6 L. Atrium dimensions 1.9-3.8 5.7 Post. Wall thickness 0.8-1.1 1.3 IV septum (thickness) 0.7-1.2 1.3 Post. Wall excursion 0.72-1.3 NORMAL Septal motion NORMAL Systolic motion R. Ventricular cavity 1.5-2.0 NORMAL LVEF 60% 64% Paradoxical septal wall motion NORMAL 2-D : PARASYSTOLIC MITRAL VALVE PROLAPSE, NORMAL LEFT VENTRICULAR CONTRACTILITY- -ENLARGED LEFT ATRIAL CAVITY--NO EFFUSION, NO THROMBUS M-MODE: MV: PARASYSTOLIC MITRAL VALVE PROLAPSE, BOTH ANTERIOR AND POST MITRAL LEAFLET AV: NORMAL TV: NORMAL PV: NORMAL CHAMBER SIZE: ENLARGED LEFT ATRIAL CAVITY WALL MOTION: NORMAL PERICARDIUM: NORMAL INTERPRETATION: 1. LEFT VENTRICULAR HYPERTROPHY WITH ENLARGED LEFT ATRIAL CAVITY (5.7CM) 2. NORMAL LEFT VENTRICULAR CONTRACTILITY 3. MITRAL VALVE PROLAPSE BOTH ANTERIOR MITRAL LEAFLET AND POST MITRAL LEAFLET PARASYSTOLIC 4. MODERATE MITRAL REGURGITATION MTDD
--- NOTE | 2016-10-09 09:24 | DS ---
DATE OF SERVICE: 10/08/16 FINAL DIAGNOSIS: 1. 2. 3. 4. 5. 6. 7. DISCHARGE INSTRUCTIONS: MEDICATIONS AT DISCHARGE: NEW PRESCRIPTIONS: DIET INSTRUCTIONS: ACTIVITY: SMOKING: DISEASE SPECIFIC EDUCATION: HOSPITAL COURSE: The patient is an 81 year old white male hospitalized with CHF exacerbation with atrial fibrillation, rapid ventricular response. The patient had stopped taking all this medications. The patient had some edema fluid with symptoms consistent with acute respiratory distress type of findings. ERDS type of findings with hypoxemia. The patient also underwent hospital psychosis. The patient has been treated with IV antibiotics because of possibility of bronchitis and sepsis. The patient's kidney functions became abnormal as his oral intact was poor and was given aggressive diarrhetic therapy initially. The patient has been practically off of all the diarrhetics for awhile and Dig was held because of high Dig level, today the Dig level was normal 1.7 and the kidney functions have improved to 1.3 and 63 today. The patient is going to put on the swing bed. He is still restless and requires Ativan and Morphine sulfate intermittently. The patient's air entry in the lungs is much better and also his blood pressure systolic is 140 with ventricular rate of 80 to 120. The patient's family has decided DNR but they have allowed to get his lab tests done today. The patient is not able to swallow any pills and most of his medications have been held. TIME SPENT: More than 60 minutes. LETICIA
--- NOTE | 2016-10-09 09:27 | SSS ---
09/30/16: Level 5 10/01/16: Intermediate 10/02/16: Intermediate 10/03/16: Intermediate 10/04/16: Intermediate 10/05/16: Intermediate 10/06/16: Intermediate 10/07/16: Admission to Swing bed (computer shows admission 10/08/16) [facility]
--- NOTE | 2016-10-09 13:31 | CM.DICTOOL ---
ADMISSION: 09/30/16 23:57 DISCHARGE: October 08, 2016 to Transitional Care DATE OF SERVICE: 10/08/16 FINAL DIAGNOSIS Metabolic Encephalopathy CHF Pneumonitis Renal Azotemia Atrial Fibrillation Anemia Hypertension GERD COPD LAST VITALS Temp Pulse Resp BP Pulse Ox 97 F L 115 H 20 128/82 93 L 10/08/16 14:00 10/08/16 14:00 10/08/16 14:00 10/08/16 14:00 10/08/16 14:00 ACTIVE MEDICATIONS Albuterol/Ipratropium (Duoneb) 1 vial NEB RTQID [facility] Last Admin: 10/08/16 14:03 Dose: 1 vial Albuterol/Ipratropium (Duoneb) 1 vial NEB RTQ2H PRN PRN Reason: Wheezing Last Admin: 10/04/16 13:13 Dose: 1 vial Bisacodyl (Dulcolax) 10 mg RC DAILY PRN PRN Reason: constipation Enoxaparin Sodium (Lovenox) 65 mg SUBCUT DAILY [facility] Last Admin: 10/08/16 08:44 Dose: 65 mg Haloperidol Lactate (Haldol) 0.5 mg IM PRN PRN PRN Reason: Restlessness Ceftriaxone Sodium 1 gm/ (Sodium Chloride) 100 mls @ 100 mls/hr IV DAILY [facility] Last Admin: 10/08/16 08:44 Dose: 100 mls/hr Dextrose/Sodium Chloride (Dextrose 5%-1/2ns Iv Solution) 1,000 mls @ 75 mls/hr IV .[id number] [facility] Last Admin: 10/08/16 00:39 Dose: 75 mls/hr Lorazepam (Ativan) 0.5 mg IVP Q6H PRN PRN Reason: Anxiety Last Admin: 10/08/16 09:11 Dose: 0.5 mg Morphine Sulfate (Morphine 2 Mg/Ml Syringe) 2 mg IVP Q2HR PRN PRN Reason: PAIN/SHORTNESS OF AIR/CONGESTI Last Admin: 10/08/16 04:17 Dose: 2 mg Ondansetron HCl (Zofran 4 Mg/2 Ml) 4 mg IVP Q6H PRN PRN Reason: Nausea / Vomiting Last Admin: 10/04/16 16:27 Dose: 4 mg Pantoprazole Sodium (Protonix) 40 mg PO BIDAC [facility] Last Admin: 10/08/16 05:46 Dose: Not Given Sodium Chloride (Saline Flush) 1 syr IVF PRN PRN PRN Reason: To flush IV Last Admin: 10/07/16 04:40 Dose: 1 syr ALLERGIES No Known Allergies Allergy (Verified 09/30/16 21:47) NEW PRESCRIPTIONS: Medications for Transitional Care Rocephin IV daily Solu-Cortef 100 mg IV at 1600 today D5 1/2 NSS IV at 75 ml/hour Morphine Sulfate IV 2 mg IV q 2 hours prn anxiety/restlessness Ativan 0.5 mg IV q 6 hours prn anxiety SMOKING: Not Applicable LAB REVIEW: 10/08/16 05:06 10/08/16 05:06 10/08/16 05:06: WBC 22.79 H D, RBC 5.02, Hgb 15.8, Hct 45.9, MCV 91.4, MCH 31.5 H, MCHC 34.4, RDW Coeff of Panfilo 16.1 H, Plt Count 250, Immature Gran % (Auto) 3.1 , Neut % (Auto) 67.3, Lymph % (Auto) 2.8 L, [place] % (Auto) 26.4 H, Eos % (Auto) 0.2, Baso % (Auto) 0.2, Immature Gran # (Auto) 0.7, Neut # 15.4 H, Lymph # 0.6, [place] # 6.0 H, Eos # 0.0, Baso # 0.0, Sodium 137, Potassium 4.6, Chloride 101, Carbon Dioxide 27, Anion Gap 13.6, BUN 63 H*, Creatinine 1.33 H D, Estimated GFR (MDRD) 51.00, BUN/Creatinine Ratio 47.36, Glucose 127 H, Calcium 8.4 10/08/16 05:00: Digoxin 1.70 PLAN: Discharge to Transitional Care for continuation of IV fluids, IV Rocephin, monitoring of renal function Diet: as tolerated Activity: Up to chair as tolerated. Alvarez catheter to closed drainage Intake/Output every shift Weigh every other day Labs daily TLM and pulse oximetry Oxygen per venti-mask at 12 liters VS every shift Duonebs QID Mr. Marquez is disoriented to time, place. He is restless and anxious requiring IV Morphine for pain/restlessness. He is able to stand briefly with maximum assistance of 2 staff members for transfer from the chair to bed or bed to chair. He is unable to ambulate. Pitting edema noted to both lower extremities. No oral intake today. He requires total care from the nursing staff. Skin is intact. No decubitus ulcers are present. A alvarez catheter is currently present to measure urine output. Tremaine Santillan MD
== END 2016-10-08 14:55 | disposition swing bed (61) | DRG 91 ==
LOC: ED 21:39 → SCU 23:57
PROVIDERS: ADMIT Internal Medicine; ATTEND Internal Medicine
DX: G93.1 Anoxic brain damage, not elsewhere classified (principal); I50.21 Acute systolic (congestive) heart failure; J18.9 Pneumonia, unspecified organism; E87.2 Acidosis; J80 Acute respiratory distress syndrome; I50.1 Left ventricular failure, unspecified; R07.9 Chest pain, unspecified; I51.7 Cardiomegaly; R06.02 Shortness of breath; I48.91 Unspecified atrial fibrillation; I34.1 Nonrheumatic mitral (valve) prolapse; I10 Essential (primary) hypertension; J44.9 Chronic obstructive pulmonary disease, unspecified; R11.0 Nausea; G47.00 Insomnia, unspecified; F41.8 Other specified anxiety disorders; R79.89 Other specified abnormal findings of blood chemistry; J20.9 Acute bronchitis, unspecified; Z79.01 Long term (current) use of anticoagulants; Z79.899 Other long term (current) drug therapy; Z91.19 Patient's noncompliance with other medical treatment and regimen
CPT/HCPCS: 36415; 80048; 80053; 80162; 82550; 82803; 83605; 83880; 84145; 84484; 85007; 85025; 87040; 87081; 93005; 93010; 94640; 96365; 99284

== ENCOUNTER 2016-10-08 14:55 | Inpatient (IN) | payer OTHER ==
[2016-10-08] MEDS ORDERED: DULCOLAX RC PRN (15:24)
[2016-10-08] MEDS ORDERED: HALDOL IM PRN (15:26)
[2016-10-08] MEDS ORDERED: MORPHINE 4 MG/ML SYRINGE IVP PRN (15:29)
[2016-10-08] MEDS ORDERED: ZOFRAN 4 MG/2 ML IVP PRN (15:30)
[2016-10-08] MEDS ORDERED: SOLU-CORTEF 100 MG IVP SCH (16:00)
[2016-10-08] MEDS: MORPHINE 2 MG/ML SYRINGE IVP PRN ×3 (16:19→22:00)
[2016-10-08] MEDS: DEXTROSE 5%-1/2NS IV SOLUTION 1,000 ML IV SCH (16:19)
[2016-10-08 16:48] VITALS: BMI 26.7
[2016-10-08] MEDS ORDERED: DUONEB IH SCH (20:00)
[2016-10-08] MEDS: DUONEB NEB SCH (20:03)
[2016-10-08] MEDS: ATIVAN IVP PRN (22:03)
[2016-10-09] MEDS: MORPHINE 2 MG/ML SYRINGE IVP PRN ×4 (00:24→09:38)
[2016-10-09] MEDS: ATIVAN IVP PRN (04:43)
[2016-10-09] MEDS: DUONEB NEB SCH ×4 (05:26→19:52)
[2016-10-09] MEDS: DEXTROSE 5%-1/2NS IV SOLUTION 1,000 ML IV SCH ×2 (05:36→20:06)
[2016-10-09 06:37] VITALS: BP 134/87
[2016-10-09 06:46] LABS: BASOPHILS # (AUTO) 0.1 K/uL (0-0.2); BASOPHILS % (AUTO) 0.3 % (0.0-3.0); EOSINOPHILS # (AUTO) 0.2 K/ul (0.0-0.7); EOSINOPHILS % (AUTO) 0.7 % (0.0-7.0); HEMATOCRIT 43.7 % (42.0-52.0); HEMOGLOBIN 15.3 g/dl (14.0-18.0); IMMATURE GRANULOCYTE % (AUTO) 3.9 % (0.0-5.0); LYMPHOCYTES % (AUTO) 4.1 (10.0-50.0); MEAN CORPUSCULAR HEMOGLOBIN 31.5 pg (27.0-31.0); MEAN CORPUSCULAR VOLUME 90.1 fl (80.0-94.0); MONOCYTES # (AUTO) 6.4 K/uL (0.4-2.0); MONOCYTES % (AUTO) 26.8 (0-10); NEUTROPHILS # (AUTO) 15.3 K/ul (2.0-6.9); NEUTROPHILS % (AUTO) 64.2; PLATELET COUNT 249 10^3/uL (140-440); RED BLOOD COUNT 4.85 10^6/ul (4.70-6.10); WHITE BLOOD COUNT 23.89 K/ul (4.2-10.2)
[2016-10-09 07:00] LABS: ALBUMIN 3.2 g/dL (3.4-5.0); ALBUMIN/GLOBULIN RATIO 1.39; ANION GAP 12.5; BILIRUBIN,TOTAL 1.18 mg/dL (0.00-1.20); BUN/CREATININE RATIO 39.28; CALCIUM 8.7 mg/dL (8.2-10.2); CREATININE 1.12 mg/dL (0.60-1.10); POTASSIUM 4.5 mmol/L (3.5-5.1); TOTAL PROTEIN 5.5 g/dL (5.8-8.1)
[2016-10-09] MEDS ORDERED: LANOXIN IVP STA (08:33)
[2016-10-09 08:47] LABS: ABG BASE EXCESS 4 (-2.0-2.0); ABG PCO2 43.1 mmHg (35-45)
[2016-10-09 08:48] LABS: ABG TCO2 29 (22.0-28.0)
[2016-10-09] MEDS ORDERED: ATIVAN IVP STA ×2 (08:50→13:46)
--- NOTE | 2016-10-09 09:36 | CT ---
EXAM: CT of the head without contrast History: Unresponsive Technique: Multiplanar CT images through the head were obtained without the administration of IV co ntrast Findings: The visualized paranasal sinuses and mastoid air cells are generally clear. No acute martina varial abnormalities. Intracranially there is diffuse atrophy. No midline shift. No hydrocephalous. Periventricular and subcortical white matter hypodensities. 9 mm hypodense lesion within the third ventricle. Impression: 1. Third ventricle hyperdense lesion could represent a colloid cyst but would recommend a MRI for c onfirmation and to exclude any other neoplastic or vascular abnormalities. 2. No acute intracranial hemorrhage. 3. Atrophy and chronic small vessel ischemic disease.
[2016-10-09] MEDS: LOVENOX SUBCUT SCH (09:39)
[2016-10-09] MEDS: SOLU-CORTEF 100 MG IVP SCH ×2 (09:39→16:04)
[2016-10-09] MEDS: ROCEPHIN 1 GM in SODIUM CHLORIDE 100 ML IV SCH (09:40)
--- NOTE | 2016-10-09 09:59 | HP ---
DATE OF SERVICE: 10/08/16 REASON FOR HOSPITALIZATION/HISTORY OF PRESENT ILLNESS: The patient is an 81 year old white male hospitalized with Congestive hear failure with generalized edema and atrial fibrillation with rapid ventricular response. The patient had stopped taking practically all his medications for a few days prior to coming to the hospital. The patient was restarted on Lanoxin given some doses and also given IV Lasix and put on Aldactone. The patient's condition first couple of days seemed to have improved clinically. His x-ray finding remained the same with edema of fluid. Likely the patient developed acute respiratory syndrome type of symptoms with hypoxemia. The patient later on developed hospital psychosis with aggressive behavior which has been controlled with Haldol, Ativan and Morphine Sulfate. The patient's kidney functions deteriorated but now they are back normalizing on the way to his prior level of functions. His urine output has increased. The patient given today IV Lasix with the 900 of urine output. The patient's condition is also clinically seems to have improved for past couple of days. REVIEW OF SYSTEMS: CONSTITUTIONAL: No night sweats. No fatigue, malaise, lethargy. No fever or chills. HEENT: Eyes: No visual changes. No eye pain. No eye discharge. ENT: No runny nose. No epistaxis. No sinus pain. No sore throat. No odynophagia. No ear pain. No congestion. RESPIRATORY: No cough, no congestion. No hemoptysis. CARDIOVASCULAR: No angina symptoms. No CHF symptoms. No atypical chest pain for CAD. No palpitations. No shortness of breath. GASTROINTESTINAL: No abdominal pain. No nausea or vomiting. No diarrhea or constipation. No hematemesis. No hematochezia. GENITOURINARY: No urgency. No frequency. No dysuria. No hematuria. No obstructive symptoms. No discharge. No pain. No significant abnormal bleeding. MUSCULOSKELETAL: No musculoskeletal pain. No joint swelling. No arthritis. NEUROLOGICAL: No headache. No neck pain. No syncope. No seizures. No dizziness. PSYCHIATRIC: Not anxious. No depression. No suicidal thoughts. No homicidal thoughts. SKIN: No rash. No lesions. No wounds. ENDOCRINE: No unexplained weight loss. No weight gain. HEMATOLOGIC/LYMPHATIC: No anemia. No purpura. No petechiae. No prolonged or excessive bleeding. No palpable lymph nodes. PERSONAL/FAMILY/SOCIAL HISTORY: The patient is and lives with his . The patient is argumentative. I think he has early Dementia. he is trying to compensate by being a joker. He does all activity of daily living. No smoker and no alcohol abuse. PAST MEDICAL/SURGICAL PROBLEMS: History atrial fibrillation Congestive heart failure Hypertension Reflux COPD Large Hiatal hernia Anemia Right adrenal nodules Microvalve prolapse with moderate mitral regurg. LA size 4.2cm size LV size 5.5cm size LV ejection fraction 55% with LVH mild. MEDICATIONS: Ferrous Sulfate 325mg PO daily Pantoprazole 40mg PO daily Digoxin 250mcg PO daily Lasix 20mg PO daily Losartan 50mg PO daily Potassium Chloride 10meq PO daily Sotalol 120mg PO twice a day Xarelto 20mg PO daily ALLERGIES: None PHYSICAL EXAMINATION: GENERAL: The patient is still confused and uncooperative behavior. VITAL SIGNS: Temperature 95, pulse 92, respiratory rate 14, blood pressure 131/ 87 and pulse ox 94%. HEENT: Head normocephalic, atraumatic. Eyes: Extraocular muscles are intact. Pupils are equal, round and reactive to light and accommodation. Ears: No lesions. Nose appeared normal. Throat: No exudate or erythema. NECK: Supple. No JVD, no carotid bruit. No lymphadenopathy or thyromegaly. LUNGS: Decreased breath sounds with few crepitations. More air entry. Percussion note normal. Chest symmetrical. HEART: S1, S2, no S3. No murmurs. No cyanosis or clubbing. No ascites. Pulses: Dorsalis pedis and posterior tibial pulses +1 to +2 both sides. ABDOMEN: Soft. Nontender. Bowel sounds active. No CVA tenderness. No mass felt. EXTREMITIES: +1 to +2 pitting edema. Full range of motion of all extremities , equal. NEUROLOGIC: No focal deficit. Cranial nerves II through XII are grossly intact. No headache, no double vision or headache. SKIN: Not dry. Intact. Turgor - normal. LYMPHATIC: No palpable lymph nodes/no lymphedema. MUSCULOSKELETAL: Normal joints with no swelling. Muscle tone is normal. LABS: hgb 15.8, hct 45, WBC 22,000 normal differential, creatinine 1.3, BUN 63 and potassium 4.6. ASSESSMENT: 1. Congestive heart failure with edema of fluid with acute respiratory distress syndrome type of symptoms 2. Respiratory failure secondary to bronchitis/pneumonitis, acute respiratory distress syndrome,Pulmonary edema and fluid seems to be improving. 3. Atrial fibrillation 4. Renal azotemia, seems to be resolving 5. Dementia on top of hospital psychosis with aggressive behavior PLAN: 1. Will put patient in the swing bed 2. Continue IV antibiotics 3. Continue IV fluids 4. Continue Ativan and Morphine Sulfate and make Haldol PRN 5. The family wants patient DNR. The patient also wanted a DNR CONDITION: Stable PROGNOSIS: Guarded TIME SPENT: More than 70 minutes. MTDD
--- NOTE | 2016-10-09 11:52 | PCM.PROG ---
Attending Provider: ATTENDING PROVIDER: Dr. JENNIFER ADORNO DATE OF SERVICE: 10/09/16 SUBJECTIVE: This 81 year old WHITE/ M was hospitalized 10/08/16. The patient is hospitalized with CHF, atrial fibrillation and rapid ventricular response. The patient continues to be restless and obtunded, doesn't follow verbal commands. He seems to be moving all extremities. Family in the room. The patient hasn't had a bowel movement but abdomen is not distended, is soft and is passing gas. REVIEW OF SYSTEMS: CONSTITUTIONAL: No night sweats. No fatigue, malaise, lethargy. No fever or chills. HEENT: Eyes: No visual changes. No eye pain. No eye discharge. ENT: No runny nose. No epistaxis. No sinus pain. No odynophagia. No congestion. RESPIRATORY: No cough, no congestion. No hemoptysis. CARDIOVASCULAR: No angina symptoms. No CHF symptoms. No atypical chest pain for CAD. No palpitations. No shortness of breath. GASTROINTESTINAL: No abdominal pain. No nausea or vomiting. No diarrhea or constipation. No hematemesis. No hematochezia. GENITOURINARY: No urgency. No frequency. No dysuria. No hematuria. No obstructive symptoms. No discharge. No pain. No significant abnormal bleeding. MUSCULOSKELETAL: No musculoskeletal pain; no joint swelling. NEUROLOGICAL: No headache. No neck pain. No syncope. No seizures. No dizziness. PSYCHIATRIC: Not anxious. No depression. No suicidal thoughts. No homicidal thoughts. SKIN: No rash. No lesions. No wounds. ENDOCRINE: No unexplained weight loss. No weight gain. HEMATOLOGIC/LYMPHATIC: No anemia. No purpura. No petechiae. No prolonged or excessive bleeding. No palpable lymph nodes. PHYSICAL EXAMINATION: GENERAL: The patient is obtunded, does not follow verbal commands, lying in bed in no distress. VITAL SIGNS: Temperature 98.0 F, Pulse 120, Respiratory Rate 20, BP 134/87, Pulse Ox 92% HEENT: Head normocephalic, atraumatic. Eyes: Extraocular muscles are intact. Pupils are equal, round and reactive to light and accommodation. Ears: No lesions. Nose appeared normal. Throat: No exudate or erythema. NECK: Supple. No JVD, no carotid bruit. No lymphadenopathy or thyromegaly. LUNGS: Decreased breath sounds with creps at the bases. Percussion note normal. Chest symmetrical. HEART: S1, S2, no S3. No murmurs. No cyanosis or clubbing. No ascites. Pulses: Dorsalis pedis and posterior tibial pulses +1 to +2 both sides. ABDOMEN: Soft. Non-tender. Bowel sounds active. No CVA tenderness. No mass felt. EXTREMITIES: No edema. Full range of motion of all extremities, equal. NEUROLOGIC: No focal deficit. Cranial nerves II through XII are grossly intact. No headache, no double vision or headache. SKIN: Not dry. Intact. Turgor-normal. LYMPHATIC: No palpable lymph nodes/no lymphedema. MUSCULOSKELETAL: Normal joints with no swelling. Muscle tone is normal. LAB REVIEW: 10/09/16 06:35 10/09/16 06:35 10/09/16 06:35: WBC 23.89 H, RBC 4.85, Hgb 15.3, Hct 43.7, MCV 90.1, MCH 31.5 H , MCHC 35.0, RDW Coeff of Pafnilo 15.9 H, Plt Count 249, Immature Gran % (Auto) 3.9 , Neut % (Auto) 64.2, Lymph % (Auto) 4.1 L, [place] % (Auto) 26.8 H, Eos % (Auto) 0.7, Baso % (Auto) 0.3, Immature Gran # (Auto) 0.9, Neut # 15.3 H, Lymph # 1.0, [place] # 6.4 H, Eos # 0.2, Baso # 0.1, Sodium 142, Potassium 4.5, Chloride 104, Carbon Dioxide 30, Anion Gap 12.5, BUN 44 H, Creatinine 1.12 H, Estimated GFR ( MDRD) 63.00, BUN/Creatinine Ratio 39.28, Glucose 124 H, Calcium 8.7, Total Bilirubin 1.18, AST 139 H, ALT 427 H, Alkaline Phosphatase 84, Total Protein 5.5 L, Albumin 3.2 L, Globulin 2.3, Albumin/Globulin Ratio 1.39 ASSESSMENT: The patient seems to have metabolic encephalopathy, ARDS, acute respiratory distress syndrome secondary to combination of pulmonary edema and aspiration. Renal failure seems to have resolved. Blood pressure is stable. PLAN: 1. Ammonia level 2. Lactic acid level 3. ABG on 3L/NC 4. CT scan of head without contrast if possible. The patient is restless so will give Ativan and Morphine to accomplish this. 5. Will have to give Lanoxin 0.25 mg IV to control ventricular rate with atrial fibrillation. 6. The patient is on Lovenox. 7. The patient has been unable to take any medicine by mouth for the last several days and is pulling IV out. ADDENDUM The patient's arterial blood gases on 3L showed p02 of 56, pc02 of 43, pH 7.42 with 89% saturation. Later on, the patient's oxygen supplements are increased to 4L/cannula/min. Lanoxin level 0.97 on 10/09/16. The patient's CT scan practically normal except for atrophy and chronic vessel changes. Lactic acid 17.8 normal. Ammonia 41 which is borderline high. Liver profile abnormal. SGPT and SGOT no jaundice noted. The patient continues to be restless, not responding to verbal stimulus. 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 The patient must have suffered hypoxic damage with acute respiratory distress syndrome. Will continue to give patient intermittently Decadron. Continue IV antibiotics. The patient is passing some gas. He hasn't eaten. His abdomen is soft and bowel sounds are active. Otherwise, condition is stable. The findings of CT scan of head and other tests were discussed with all family members including , possibility of anoxic encephalopathy discussed. The patient hasn't eaten for the past 4 to 5 days. is thinking of having feeding tube by 10/11/16. Also, I talked to them about doing an EEG. Prognosis is poor. The patient is DNR. Plan and coordination of the patient's care discussed in the presence of Credit Union Manager and nurse. EDUCATION: Discussion with the family on plan for today. They voiced understanding and are in agreement. CONDITION: Stable; Prognosis is poor. SCRIBED BY: SAM MORA, Jack Machine Operator scribed while in presence of service performed by Dr. JENNIFER ADORNO on 10/09/16 ([id number])
[2016-10-09 18:00] VITALS: TEMP 96.6
[2016-10-09] MEDS: ATIVAN IVP SCH ×2 (18:02→23:34)
[2016-10-10] MEDS: MORPHINE 2 MG/ML SYRINGE IVP PRN (04:57)
[2016-10-10] MEDS: DUONEB NEB SCH ×4 (04:59→21:03)
[2016-10-10] MEDS: ATIVAN IVP SCH ×5 (05:45→20:30)
[2016-10-10 07:27] LABS: HEMATOCRIT 43.4 % (42.0-52.0); HEMOGLOBIN 14.9 g/dl (14.0-18.0); MEAN CORPUSCULAR HEMOGLOBIN 31.4 pg (27.0-31.0); MEAN CORPUSCULAR HGB CONC 34.3 (31.8-35.4); MEAN CORPUSCULAR VOLUME 91.6 fl (80.0-94.0); PLATELET COUNT 248 10^3/uL (140-440); RED BLOOD COUNT 4.74 10^6/ul (4.70-6.10); WHITE BLOOD COUNT 24.53 K/ul (4.2-10.2)
[2016-10-10 07:34] LABS: ALBUMIN 3.4 g/dL (3.4-5.0); ALBUMIN/GLOBULIN RATIO 1.48; ANION GAP 13.5; BILIRUBIN,TOTAL 1.55 mg/dL (0.00-1.20); BUN/CREATININE RATIO 30.9; CALCIUM 8.6 mg/dL (8.2-10.2); CREATININE 1.1 mg/dL (0.60-1.10); POTASSIUM 4.5 mmol/L (3.5-5.1); TOTAL PROTEIN 5.7 g/dL (5.8-8.1)
[2016-10-10 07:52] LABS: ANISOCYTOSIS NOT PRESENT (NOT PRESENT)
[2016-10-10] MEDS ORDERED: LANOXIN IVP STA (08:23)
[2016-10-10] MEDS: LOVENOX SUBCUT SCH (08:56)
[2016-10-10] MEDS: ROCEPHIN 1 GM in SODIUM CHLORIDE 100 ML IV SCH (08:57)
--- NOTE | 2016-10-10 09:46 | PCM.PROG ---
Attending Provider: ATTENDING PROVIDER: Dr. JENNIFER ADORNO DATE OF SERVICE: 10/10/16 SUBJECTIVE: This 81 year old WHITE/ M was hospitalized 10/08/16. The patient is still restless, not responding to verbal commands, moving all extremities. The is present in the room. The patient's oxygen saturation is 87% to 90% on 4L but he is not able to keep mask on as he is so restless. REVIEW OF SYSTEMS: (the patient is not responsive to verbal stimuli) CONSTITUTIONAL: No night sweats. No fatigue, malaise, lethargy. No fever or chills. HEENT: Eyes: No visual changes. No eye pain. No eye discharge. ENT: No runny nose. No epistaxis. No sinus pain. No odynophagia. No congestion. RESPIRATORY: No cough, no congestion. No hemoptysis. CARDIOVASCULAR: No angina symptoms. No CHF symptoms. No atypical chest pain for CAD. No palpitations. No shortness of breath. GASTROINTESTINAL: No abdominal pain. No nausea or vomiting. No diarrhea or constipation. No hematemesis. No hematochezia. GENITOURINARY: No urgency. No frequency. No dysuria. No hematuria. No obstructive symptoms. No discharge. No pain. No significant abnormal bleeding. MUSCULOSKELETAL: No musculoskeletal pain; no joint swelling. NEUROLOGICAL: Obtunded, does not respond to verbal commands. No headache. No neck pain. No syncope. No seizures. No dizziness. PSYCHIATRIC: Not anxious. No depression. No suicidal thoughts. No homicidal thoughts. SKIN: No rash. No lesions. No wounds. ENDOCRINE: No unexplained weight loss. No weight gain. HEMATOLOGIC/LYMPHATIC: No anemia. No purpura. No petechiae. No prolonged or excessive bleeding. No palpable lymph nodes. PHYSICAL EXAMINATION GENERAL: The patient is obtunded, does not respond to verbal stimulus, lying in bed, restless. VITAL SIGNS: Temperature 96.6 F, Pulse 120, Respiratory Rate 20, BP 134/87, Pulse Ox 87% HEENT: Head normocephalic, atraumatic. Eyes: Extraocular muscles are intact. Pupils are equal, round and reactive to light and accommodation. Ears: No lesions. Nose appeared normal. Throat: No exudate or erythema. NECK: Supple. No JVD, no carotid bruit. No lymphadenopathy or thyromegaly. LUNGS: Breath sounds deeper, better. Clear to auscultation. Percussion note normal. Chest symmetrical. HEART: S1, S2, no S3. No murmurs. No cyanosis or clubbing. No ascites. Pulses: Dorsalis pedis and posterior tibial pulses +1 to +2 both sides. ABDOMEN: Soft. Non-tender. Bowel sounds active. No CVA tenderness. No mass felt. EXTREMITIES: No edema. Full range of motion of all extremities, equal. NEUROLOGIC: No focal deficit. Cranial nerves II through XII are grossly intact. No headache, no double vision or headache. SKIN: Not dry. Intact. Turgor-normal. LYMPHATIC: No palpable lymph nodes/no lymphedema. MUSCULOSKELETAL: Normal joints with no swelling. Muscle tone is normal. LAB REVIEW: 10/10/16 07:00 10/10/16 07:00 10/10/16 07:00: WBC 24.53 H, RBC 4.74, Hgb 14.9, Hct 43.4, MCV 91.6, MCH 31.4 H , MCHC 34.3, RDW Coeff of Panfilo 15.9 H, Plt Count 248, Neutrophils % (Manual) 76.0 H, Lymphocytes % (Manual) 5.0 L, Monocytes % (Manual) 12.0 H, Metamyelocytes % 2.0, Reactive Lymphocytes 5.0, Sodium 144, Potassium 4.5, Chloride 106, Carbon Dioxide 29, Anion Gap 13.5, BUN 34 H, Creatinine 1.10, Estimated GFR (MDRD) 64.00, BUN/Creatinine Ratio 30.90, Glucose 129 H, Calcium 8.6, Total Bilirubin 1.55 H, AST 142 H, ALT 371 H D, Alkaline Phosphatase 91, Total Protein 5.7 L, Albumin 3.4, Globulin 2.3, Albumin/Globulin Ratio 1.48 10/09/16 09:15: Lactic Acid 17.8, Ammonia 41 H 10/09/16 08:40: Puncture Site R rad, O2 Saturation 89.0 L, ABG pH 7.420, ABG pCO2 43.1, ABG pO2 56.0 L*, ABG HCO3 28.0 H, ABG Total CO2 29 H, ABG Base Excess 4 H, Bertin Test +, O2 Delivery Device Nc, Oxygen Liter Flow 3.00 10/09/16 06:35: TSH 1.930, Free T4 0.96 10/09/16 06:30: Digoxin 0.97 L ASSESSMENT: 1. It is likely the patient has anoxic encephalopathy coming from acute pulmonary edema and pneumonitis causing ARDS type of syndrome. The patient's breath sounds are a little deeper and better. The patient is still passing gas , bowel sounds are active. Abdomen is soft. Liver enzymes are somewhat better , no jaundice. Kidney functions are stable; GFR 65 stable. 2. Leukocytosis is likely from steroids and maybe continued inflammation in the lung. PLAN: With the patient's restlessness, we are unable to do any more tests. From a nutritional aspect, the does not want any gastrostomy tube or feeding tube. IV fluids will still be continued. I will increase Ativan to 1 mg q.5 to 6 hourly for restlessness. Otherwise condition is stable; prognosis is poor. Plan and coordination of the patient's care discussed in the presence of Hot Mill Worker and nurse. CONDITION: Stable; prognosis is poor. ADDENDUM: I talked with the patient's about the strong possibility of the patient having anoxic encephalopathy and hypoxic damage during the stay in the hospital. Again, I tried to explain to her that even with 4L he barely keeps his oxygen saturation 88 to 90% and needs to wear oxygen for any recovery that could be possible. The patient's insisted that he hasn't liked to wear the oxygen right from day one and at times, he was made to wear a Venti mask because of worsening of arterial blood gases in the initial phase of the hospital stay. According to her , a lot of times at night he took the cannula off and on for a prolonged period of time and at night. According to her, she didn't put it back because right from the very beginning he hated it. According to her, the mask and cannula makes him restless and when he doesn't wear it he is fine. She doesn't want any artificial way of feeding the patient by gastrostomy tube or NG tube. Emphatically said that he never wanted to live this way and is not going to allow that to happen. SCRIBED BY: SAM MORA, Garbage Collector Supervisor scribed while in presence of service performed by Dr. JENNIFER ADORNO on 10/10/16 ([id number])
[2016-10-10] MEDS: DEXTROSE 5%-1/2NS IV SOLUTION 1,000 ML IV SCH ×2 (10:43→22:46)
[2016-10-11] MEDS: ATIVAN IVP SCH ×5 (00:14→15:43)
[2016-10-11 07:22] LABS: BASOPHILS # (AUTO) 0.1 K/uL (0-0.2); BASOPHILS % (AUTO) 0.3 % (0.0-3.0); EOSINOPHILS # (AUTO) 0.2 K/ul (0.0-0.7); HEMATOCRIT 42.5 % (42.0-52.0); HEMOGLOBIN 14.4 g/dl (14.0-18.0); LYMPHOCYTES # (AUTO) 0.9 K/uL (0.60-3.4); LYMPHOCYTES % (AUTO) 3.9 (10.0-50.0); MEAN CORPUSCULAR HEMOGLOBIN 31.8 pg (27.0-31.0); MEAN CORPUSCULAR HGB CONC 33.9 (31.8-35.4); MEAN CORPUSCULAR VOLUME 93.8 fl (80.0-94.0); MONOCYTES # (AUTO) 6.4 K/uL (0.4-2.0); MONOCYTES % (AUTO) 28.1 (0-10); NEUTROPHILS # (AUTO) 14.1 K/ul (2.0-6.9); NEUTROPHILS % (AUTO) 61.7; PLATELET COUNT 199 10^3/uL (140-440); RED BLOOD COUNT 4.53 10^6/ul (4.70-6.10); WHITE BLOOD COUNT 22.74 K/ul (4.2-10.2)
[2016-10-11 07:31] LABS: ALBUMIN 3.2 g/dL (3.4-5.0); ALBUMIN/GLOBULIN RATIO 1.45; ANION GAP 14.5; BILIRUBIN,TOTAL 1.36 mg/dL (0.00-1.20); BUN/CREATININE RATIO 22.22; CALCIUM 8.6 mg/dL (8.2-10.2); CREATININE 1.08 mg/dL (0.60-1.10); POTASSIUM 4.5 mmol/L (3.5-5.1); TOTAL PROTEIN 5.4 g/dL (5.8-8.1)
[2016-10-11] MEDS ORDERED: LASIX IVP STA (08:20)
[2016-10-11] MEDS ORDERED: LANOXIN IVP STA (08:20)
[2016-10-11] MEDS ORDERED: DEXTROSE 5%-WATER IV SOLN 1,000 ML IV SCH (08:30)
[2016-10-11] MEDS: LOVENOX SUBCUT SCH (09:33)
[2016-10-11] MEDS: ROCEPHIN 1 GM in SODIUM CHLORIDE 100 ML IV SCH (09:34)
[2016-10-11] MEDS ORDERED: DUONEB NEB PRN (10:06)
[2016-10-11] MEDS: DUONEB NEB SCH (10:34)
--- NOTE | 2016-10-11 13:46 | CM.DICTOOL ---
ADMISSION: 10/08/16 14:55 DISCHARGE: October 11, 2016 From Transitional Care DATE OF SERVICE: 10/11/16 FINAL DIAGNOSIS Pneumonitis Continuation of IV antibiotics ARDS Renal Azotemia, resolved Anoxic Encephalopathy Leukocytosis Acute Pulmonary Edema CHF Atrial Fibrillation Mitral Valve Prolapse with moderate mitral regurgitation Hiatal Hernia Diverticulosis LAST VITALS Temp Pulse Resp BP Pulse Ox 96.6 F L 162 H 24 134/87 92 L 10/09/16 17:58 10/11/16 09:33 10/11/16 05:43 10/09/16 06:00 10/10/16 18:00 ACTIVE HOME MEDICATIONS All home medications stopped due to patient inability to swallow medications. ALLERGIES No Known Allergies Allergy (Verified 09/30/16 21:47) NEW PRESCRIPTIONS: Roxanol 0.25 ml every 3 hours prn restlessness/anxiety Ativan Intensol 1(one) mg every 4 hours Other medications to be ordered and prescribed by Hospice for fever, constipation, nausea. SMOKING: Not applicable DISEASE SPECIFIC EDUCATION: Not applicable for patient Discussion with and family regarding pneumonia, anoxic encephalopathy, and Hospice care. LAB REVIEW: 10/11/16 07:07 10/11/16 07:07 10/11/16 07:07: WBC 22.74 H, RBC 4.53 L, Hgb 14.4, Hct 42.5, MCV 93.8, MCH 31.8 H, MCHC 33.9, RDW Coeff of Panfilo 16.7 H, Plt Count 199, Immature Gran % (Auto) 5.0 , Neut % (Auto) 61.7, Lymph % (Auto) 3.9 L, [place] % (Auto) 28.1 H, Eos % (Auto) 1.0, Baso % (Auto) 0.3, Immature Gran # (Auto) 1.1 H, Neut # 14.1 H, Lymph # 0.9 , [place] # 6.4 H, Eos # 0.2, Baso # 0.1, Sodium 149 H, Potassium 4.5, Chloride 107 , Carbon Dioxide 32 H, Anion Gap 14.5, BUN 24 H, Creatinine 1.08, Estimated GFR (MDRD) 65.00, BUN/Creatinine Ratio 22.22, Glucose 123 H, Calcium 8.6, Total Bilirubin 1.36 H, AST 85 H D, ALT 261 H D, Alkaline Phosphatase 93, Total Protein 5.4 L, Albumin 3.2 L, Globulin 2.2, Albumin/Globulin Ratio 1.45 PLAN: Discharge home with [facility] per , Zhanna Marquez request All appropriate DME including oxygen has been arranged by [facility] and is in place prior to patient discharge. Diet: NPO or liquids if patient is responsive Activity: Bedrest with turning and repositioning for comfort as needed Oxygen at 4 liters per cannula Alvarez catheter in place for comfort and to prevent skin breakdown Mouth care prn Mr. Marquez is unresponsive and requires total care by the nursing staff. He does move all extremities. He does not open eyes. Nasal oxygen is in place at 4 liters per cannula and is well tolerated by the patient. A alvarez catheter is patent to closed drainage. Color is rafael, skin is dry and intact. Bruising noted to upper extremities. Prognosis is poor. The has requested hospice care and desires to take the patient home today. Tremaine Santillan MD
--- NOTE | 2016-10-11 15:05 | PCM.PROG ---
Attending Provider: ATTENDING PROVIDER: Dr. JENNIFER ADORNO DATE OF SERVICE: 10/11/16 SUBJECTIVE: This 81 year old WHITE/ M was hospitalized 10/08/16. The patient is hospitalized with acute pulmonary edema, respiratory failure and pneumonitis. The patient has developed acute respiratory distress syndrome type of clinical picture with anoxic encephalopathy. The patient is DNR. The patient very likely has suffered hypoxic damage to the brain with anoxic encephalopathy and is the reason the patient is not responsive. The patient is restless and Ativan is helping to keep this under control for the past several days. The patient continues to be in atrial fibrillation. The family has declined NG tube feeding or gastrostomy. The and family want the patient to be referred to hospice. Will give referral to [facility] per family's choice. REVIEW OF SYSTEMS: (Unable to obtain as the patient is unresponsive to verbal stimuli) CONSTITUTIONAL: No night sweats. No fatigue, malaise, lethargy. No fever or chills. HEENT: Eyes: No visual changes. No eye pain. No eye discharge. ENT: No runny nose. No epistaxis. No sinus pain. No odynophagia. No congestion. RESPIRATORY: No cough, no congestion. No hemoptysis. CARDIOVASCULAR: No angina symptoms. No CHF symptoms. No atypical chest pain for CAD. No palpitations. No shortness of breath. GASTROINTESTINAL: No abdominal pain. No nausea or vomiting. No diarrhea or constipation. No hematemesis. No hematochezia. GENITOURINARY: No urgency. No frequency. No dysuria. No hematuria. No obstructive symptoms. No discharge. No pain. No significant abnormal bleeding. MUSCULOSKELETAL: No musculoskeletal pain; no joint swelling. NEUROLOGICAL: . No headache. No neck pain. No syncope. No seizures. No dizziness. PSYCHIATRIC: Not anxious. No depression. No suicidal thoughts. No homicidal thoughts. SKIN: No rash. No lesions. No wounds. ENDOCRINE: No unexplained weight loss. No weight gain. HEMATOLOGIC/LYMPHATIC: No anemia. No purpura. No petechiae. No prolonged or excessive bleeding. No palpable lymph nodes. PHYSICAL EXAMINATION: GENERAL: The patient is unresponsive to verbal stimuli and is restless. VITAL SIGNS: Temperature 96.6 F, Pulse 131, Respiratory Rate 24, BP 134/87, Pulse Ox 92% HEENT: Head normocephalic, atraumatic. Eyes: Extraocular muscles are intact. Pupils are equal, round and reactive to light and accommodation. Ears: No lesions. Nose appeared normal. Throat: No exudate or erythema. NECK: Supple. No JVD, no carotid bruit. No lymphadenopathy or thyromegaly. LUNGS: Clear to auscultation. Percussion note normal. Chest symmetrical. HEART: S1, S2, no S3. No murmurs. No cyanosis or clubbing. No ascites. Pulses: Dorsalis pedis and posterior tibial pulses +1 to +2 both sides. ABDOMEN: Soft. Bowel sounds active. No CVA tenderness. No mass felt. EXTREMITIES: No edema. Full range of motion of all extremities, equal. NEUROLOGIC: No focal deficit. Cranial nerves II through XII are grossly intact. No headache, no double vision or headache. SKIN: Not dry. Intact. Turgor-normal. LYMPHATIC: No palpable lymph nodes/no lymphedema. MUSCULOSKELETAL: Normal joints with no swelling. Muscle tone is normal. LAB REVIEW: 10/11/16 07:07 10/11/16 07:07 10/11/16 07:07: WBC 22.74 H, RBC 4.53 L, Hgb 14.4, Hct 42.5, MCV 93.8, MCH 31.8 H, MCHC 33.9, RDW Coeff of Panfilo 16.7 H, Plt Count 199, Immature Gran % (Auto) 5.0 , Neut % (Auto) 61.7, Lymph % (Auto) 3.9 L, [place] % (Auto) 28.1 H, Eos % (Auto) 1.0, Baso % (Auto) 0.3, Immature Gran # (Auto) 1.1 H, Neut # 14.1 H, Lymph # 0.9 , [place] # 6.4 H, Eos # 0.2, Baso # 0.1, Sodium 149 H, Potassium 4.5, Chloride 107 , Carbon Dioxide 32 H, Anion Gap 14.5, BUN 24 H, Creatinine 1.08, Estimated GFR (MDRD) 65.00, BUN/Creatinine Ratio 22.22, Glucose 123 H, Calcium 8.6, Total Bilirubin 1.36 H, AST 85 H D, ALT 261 H D, Alkaline Phosphatase 93, Total Protein 5.4 L, Albumin 3.2 L, Globulin 2.2, Albumin/Globulin Ratio 1.45 ASSESSMENT: 1. Anoxic encephalopathy 2. Chronic respiratory failure 3. Aspiration pneumonia 4. CHF 5. Atrial fibrillation PLAN: 1. Lanoxin 250 mcg IVP once stat 2. Lovenox 65 mg SQ daily 3. Dulcolax suppository for bowels. Plan and coordination of the patient's care discussed in the presence of Media Planner / Buyer and nurse. EDUCATION: Discussed at length with family concerning hospice. The and family request [facility]. CONDITION: Medical condition is stable; Prognosis is poor. SCRIBED BY: SAM MORA Computer Systems Auditor scribed while in presence of service performed by Dr. JENNIFER ADORNO on 10/11/16 ([id number])
[2016-10-11] MEDS: MORPHINE 2 MG/ML SYRINGE IVP PRN (15:43)
--- NOTE | 2016-10-18 10:30 | DS ---
DATE OF SERVICE: 10/11/16 FINAL DIAGNOSIS: 1. ANOXIC ENCEPHALOPATHY 2. RESPIRATORY FAILURE 3. ARDS 4. PULMONARY EDEMA 5. CONGESTIVE HEART FAILURE 6. 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 CHRONIC LUNG DISEASE LAST V/S: Temperature 96.6, Pulse 162, respirations 24, BP 134/87, pulse ox 92% DISCHARGE INSTRUCTIONS: Followup appointment: Discharge home with [facility] per , Zhanna Marquez request. MEDICATIONS AT DISCHARGE: None NEW PRESCRIPTIONS: 1. Roxanol 0.25 mL every 3 hours p.r.n. restlessness/anxiety 2. Ativan Intensol 1 mg every four hours Other medications to be ordered and prescribed by Hospice for fever, constipation and nausea. DIET INSTRUCTIONS: NPO or liquids if patient is responsive ACTIVITY: Bedrest with turning and repositioning for comfort as needed. SMOKING: N/A DISEASE SPECIFIC EDUCATION: Not applicable for patient Discussion with and family regarding pneumonia, anoxic encephalopath HOSPITAL COURSE: 81-year-old white male hospitalized initially with congestive heart failure, rapid atrial fibrillation with rapid ventricular response, respiratory failure. The patient improved initially within 24 to 48 hrs. Likely developed pneumonitis , bronchitis from edema/fluid the patient had in the lungs. The patient was treated aggressively initially with diuretic. His oral intake was not that good to begin with. The patient was started on antibiotics. The patient developed ARDS type of clinical picture with severe hypoxemia. At that point, the family, especially the and the patient himself declined to have intubation or respirator and made him DNR. The patient developed sort of renal failure in the way with renal azotemia type of picture with poor urine output. The patient's mental status also fluctuated and was confused at times, uncooperative, started becoming aggressive , demented, fought oxygen mask and cannulas intermittently. The patient's family declined any lab tests. IV fluids were given because of the patient's very poor oral intake. Respiratory status stabilized with hypoxemia. The kidney functions improved. The patient was intermittently given steroids also for his respiratory status. The patient's mental status continued to deteriorate. He remained obtunded. The patient remained restless. The patient's clinical picture looked more like anoxic encephalopathy with restlessness and jerky motions. CT scan of the head was practically negative. During the stay in the hospital except for first 2 to 3 days, the patient practically had no oral intake in the way of food/liquids. Hyperalimentation was discussed and it was declined in all forms like NG tube or gastrostomy tube. IV fluids were continued. Hospice was discussed which the discussion was brought on by the on 10/11/16. Consultation to hospice was given to [facility] per family request. The patient was discharged on hospice to be followed by [facility]. SPECIFIC ORDERS: Oxygen at 4L/[place] catheter in place for comfort and to prevent skin breakdown Mouth care p.r.n. PROGNOSIS: Poor TIME SPENT: More than 60 minutes. MTDD
== END 2016-10-11 16:03 | disposition hospice, home (50) | DRG 92 ==
LOC: MEDSURG B 14:55
PROVIDERS: ADMIT Internal Medicine; ATTEND Internal Medicine
DX: G93.1 Anoxic brain damage, not elsewhere classified (principal); J80 Acute respiratory distress syndrome; J81.1 Chronic pulmonary edema; R79.89 Other specified abnormal findings of blood chemistry; I50.9 Heart failure, unspecified; I48.91 Unspecified atrial fibrillation; I34.1 Nonrheumatic mitral (valve) prolapse; R34 Anuria and oliguria; R63.0 Anorexia; R41.82 Altered mental status, unspecified; J44.9 Chronic obstructive pulmonary disease, unspecified; Z79.899 Other long term (current) drug therapy; Z79.2 Long term (current) use of antibiotics
CPT/HCPCS: 36415; 80053; 80162; 82140; 82803; 83605; 84439; 84443; 85007; 85025; 87081; 94640; 97802

== ENCOUNTER 2016-10-11 16:00 | Outpatient (CLI) | END 2016-10-11 16:01 | disposition home or self-care (01) | LOC: AMBL 16:00 | PROVIDERS: ATTEND Emergency Medicine | DX: R53.1 Weakness (principal); R40.2431 Glasgow coma scale score 3-8, in the field [EMT or ambulance]; Z51.5 Encounter for palliative care ==